=== PATIENT | male | born 1985 | race Caucasian/White ===

== ENCOUNTER 2019-06-10 14:21 | Inpatient (IN) | payer MEDICAID, SELFPAY ==
[~2019-06-10] VITALS: Ht 180.3 cm; Wt 76.0 kg
[2019-06-10] MEDS ORDERED: BUPRENORPHINE/NALOXONE 8-2MG SUBLINGUAL TABLET(SUBOXONE) SL SCH (16:00)
[2019-06-10 16:17] VITALS: BP 127/78
[2019-06-10] MEDS ORDERED: BUPR8SUB SL (16:40)
[2019-06-10 16:54] LABS: BASO % 0.3 % (0.0-1.0); EOS # 0.1 10^3/uL (0.0-0.50); EOS % 0.8 % (0.0-3.0); HEMATOCRIT 35.9 % (42.0-52.0); HEMOGLOBIN 12.4 g/dl (13.5-17.5); LYMPH # 0.7 10^3/uL (1.5-4.5); LYMPH % 9.6 % (24.0-44.0); MEAN CORPUSCULAR HEMOGLOBIN 30.5 pg (27.0-33.0); MEAN CORPUSCULAR HGB CONC 34.5 g/dl (32.0-36.5); MEAN CORPUSCULAR VOLUME 88.4 fl (80.0-96.0); MONO # 0.9 10^3/uL (0.0-0.8); MONO % 12.2 % (0.0-5.0); NEUTROPHILS # 5.5 10^3/uL (1.8-7.7); NEUTROPHILS % 76.1 % (36.0-66.0); RED BLOOD COUNT 4.06 10^6/uL (4.30-6.10); WHITE BLOOD COUNT 7.2 10^3/uL (4.0-10.0)
[2019-06-10 17:29] LABS: PLATELET COUNT, AUTOMATED 77 10^3/uL (150-450)
[2019-06-10] MEDS ORDERED: GLUCAGON FOR INJ 1 MG VIAL (J1610) SC PRN (17:30)
[2019-06-10] MEDS ORDERED: DEXTROSE 50% 50 ML SYRINGE IV PRN (17:30)
[2019-06-10] MEDS ORDERED: GLUCOSE 4 GM CHEW TABLET PO PRN (17:30)
--- NOTE | 2019-06-10 18:23 | HPE ---
DATE OF ADMISSION: 06/10/2019 PRIMARY CARE PHYSICIAN: None. Patient transfers from [facility], [place] due to multifocal pneumonia and methicillin-resistant Staphylococcus aureus (MRSA) bacteremia. HISTORY OF PRESENTING ILLNESS: This is a 34-year-old male with past medical history of IV drug use with heroin, cocaine, prescription medications, morphine, fentanyl, with last use being 5 years ago, bipolar disorder, depression, and active tobacco use, a little more than one pack a day, was well until about 3 weeks ago when he stabbed his left wrist with plywood at work after slipping. At that time, he went to [facility] emergency room where it was cleansed and super glued. He was sent home without antibiotics and without pain medication. According to him, the pain became much more severe, he was unable to work, his boss said that he did not look good, and he was told to just stay on the ground with moderate duty. He really was not able to do anything, but his boss said that if the other construction workers needed something then he can hand it to them. He did this for about 2 days and then he was off , Sunday, and the following weekend. Throughout the following week, he had on and off chills and rigors. He denied any documented fevers. He said he tried to come back to work on Sunday but he was sent home again by his boss on Sunday and Sunday. On Sunday/ he tried to tough it out, but he could not, because he needs the income. At home he has three children and a girlfriend. His boss gave him Sunday off and the children wanted to go to the [facility] on Sunday but he thought that he did not have any money. Once he got his paycheck, his boss had given him a 40-hour check and he was able to let them go. He felt badly that he stayed behind. When his girlfriend came back, she was exhausted and could not bring him to the hospital. He complained of generalized weakness, pain mostly on the left side, some on and off chills, he described it as like having a seizure "but I was wide awake with a fan on me" with some shortness of breath, cough which was nonproductive. He has had decreased appetite and has not had any documented weight loss. The last time he ate was a half a bowl of macaroni and cheese and some chicken from [email or web address]. Since then he has had no appetite. His girlfriend's mom, who works in billing over at [facility], [place], was able to give him a ride to the hospital. He was admitted to [facility] [place] on 06/08/2019 where he was found to have multifocal pneumonia on CT of the chest. His heart rate was 142, sinus tachycardia. He did not have any open lesions on his upper or lower extremities, chest, back, and abdomen. No source of cellulitis. Due to complaints of nausea and episodes of occasional vomiting, food emesis, CT of the abdomen was also done which showed nonobstructive minimal nephrolithiasis on the right kidney, mild splenomegaly. He was treated initially with ceftriaxone and azithromycin for community-acquired pneumonia. He then became hypotensive and required IV fluids with central line placement on 06/09/2019. His urine and drug screen was positive for marijuana which he admits to taking. Patient was transferred to [facility] due to blood cultures showing MRSA. Sensitivities are pending. His antibiotics were then changed to vancomycin and Zosyn. PAST MEDICAL HISTORY: IV drug use with heroin, cocaine, currently only using marijuana socially, depression, bipolar disorder. PAST SURGICAL HISTORY: None. HOME MEDICATIONS: - buprenorphine 8 mg three times a day, prescribed by a physician in [facility] which he teleconferences once a month ALLERGIES: No known drug allergies. SOCIAL HISTORY: No alcohol use. The patient has been smoking cigarettes, a little more than a pack a day, since the age of 13. He has decreased smoking for the past 2-3 weeks since he has been ill. He uses marijuana daily. He previously used heroin, cocaine, morphine, fentanyl, last used this 5 years ago. He is currently managed by a physician in [facility] that has video conference with him every month for the past 3-5 years. 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 He has a girlfriend. He has three children, eldest is a 12-year-old son, 11-year-old daughter, and a 3-year-old. He is the only income earner in the family. FAMILY HISTORY: Mother in her 50s, is a registered nurse, healthy. Father in his mid-50s with kidney issues. REVIEW OF SYSTEMS: Per history of present illness (HPI). 12-point system otherwise negative. PHYSICAL EXAMINATION: Temperature 97.4, pulse 101, respiratory rate 22, blood pressure 127/78, 98% on room air. GENERALLY: Patient is awake, alert, oriented times three. No facial asymmetry. Tongue is midline. Pupils are round and reactive. Extraocular muscles are intact. Patient's speech is fluent. Anicteric sclerae. No jaundice. No tracheal deviation. Following commands. Able to state his history. HEENT: Pupils are round and reactive. Extraocular muscles are intact. No jugular venous distention. No thyromegaly. No cervical lymphadenopathy. LUNGS: Clear to auscultation in the upper lobes. No wheezing or rales. HEART: S1, S2, sinus rhythm. No murmurs. Nondisplaced point of maximal impulse. ABDOMEN: Soft, nontender, nondistended. Positive bowel sounds times four quadrants. No rebound or guarding. EXTREMITIES: No cyanosis, clubbing, or pitting edema. SKIN: Patient has multiple healed lesions. Lesion on the wrist is well healed. There is no purulence, tenderness, or induration on the left wrist. LABORATORY DATA: White count 7.2, hemoglobin 12, hematocrit 35, platelet count of 77. Metabolic panel, liver function tests, CRP, blood cultures are pending. Hepatitis serology and HIV are pending. Chest x-ray pending. IMAGING STUDIES FROM [facility]: CTA of the chest showed scattered bilateral lateral multiple ground-glass opacities and ground-glass nodules likely due to multifocal pneumonia. Advise short-term followup to exclude persisting nodule on pathology. No definitive filling defects to suggest pulmonary emboli. CT abdomen shows nonobstructive minimal nephrolithiasis in the right kidney with mild splenomegaly. ASSESSMENT AND PLAN: Active issues are: 1. Bilateral multifocal pneumonia with gram-positive bacteremia. Patient's sensitivity results are still pending. Patient previously received ceftriaxone and azithromycin from 06/08/2019 to 06/09/2019, seen at [facility] [place], recently switched over to vancomycin and Zosyn for broader coverage in light of the methicillin-resistant Staphylococcus aureus (MRSA) bacteremia found in blood culture. Patient is continued on the same for now until blood cultures are finalized. Two sets of blood cultures could only be obtained through the central line due to poor venous access. 2. Methicillin-resistant Staphylococcus aureus (MRSA) bacteremia. Currently on vancomycin and Zosyn until final culture results are obtained. Repeat blood cultures are taken here at [facility]. Will obtain sensitivity results from [facility] [place]. Echocardiogram was negative for vegetation. His ejection fraction was 60%. The patient was agreeable to doing a transesophageal echocardiogram to rule out endocarditis. Dr. Kaufman has been consulted. Patient will be kept nothing by mouth after midnight. IV fluids to prevent hypoglycemia and hypoglycemic protocol from midnight until the exam is performed tomorrow before 6:30 p.m. 3. Nicotine abuse. Tobacco cessation counseling has been provided. He smokes a little over a pack a day. He is on nicotine replacement therapy. 4. History of polysubstance abuse with prescription medications, morphine, fentanyl, heroin, cocaine. He is currently managed by a physician in [facility] and does video conferencing once a month. May resume patient's buprenorphine, Suboxone, one tablet three times a day. 5. Thrombocytopenia. Admission platelets of [address] [facility] [place] had a platelet count of 77. Therefore, compression stockings will be placed. Heparin induced panel will be sent. Check a disseminated intravascular coagulation (DIC) panel. 6. Positive urine drug screen for marijuana. Patient admits to continued marijuana use. 7. History of bipolar disorder. Currently on no medications. 8. Splenomegaly, incidental finding. Does not complain of any left-sided pain. [facility]
[2019-06-10 18:45] LABS: INR 1.2; PROTHROMBIN TIME 14.9 SECONDS (11.8-14.0)
[2019-06-10 18:46] LABS: PARTIAL THROMBOPLASTIN TIME 36.7 SECONDS (25.0-38.4)
[2019-06-10] MEDS: NICOTINE 14 MG/24 HR TRANSDERMAL TD SCH (18:46)
[2019-06-10] MEDS: PIPERACILLIN/TAZOBACTAM SOD 4.5 GM in D5W MINI-BAG PLUS 50 ML IV SCH ×2 (18:46→23:58)
[2019-06-10] MEDS ORDERED: KETOROLAC 30 MG/ML VIAL (J1885) IV ONE (19:00)
[2019-06-10 19:02] LABS: D-DIMER QUANT 3931.02 ng/ml (<500)
[2019-06-10 19:03] LABS: ERYTHROCYTE SEDIMENTATION RATE 13 mm/hr (0-15)
[2019-06-10 19:26] LABS: ALT/SGPT 31 U/L (12-78); BILIRUBIN,DIRECT 0.6 MG/DL (0.0-0.2); BILIRUBIN,TOTAL 0.9 MG/DL (0.2-1.0); BLOOD UREA NITROGEN 12 MG/DL (7-18); CALCIUM LEVEL 7.4 MG/DL (8.5-10.1); CARBON DIOXIDE LEVEL 28 MEQ/L (21-32); CHLORIDE LEVEL 103 MEQ/L (98-107); CREATININE FOR GFR 0.58 MG/DL (0.70-1.30); GLOMERULAR FILTRATION RATE > 60.0 (>60); GLUCOSE, FASTING 96 MG/DL (70-100); POTASSIUM SERUM 3.4 MEQ/L (3.5-5.1); SODIUM LEVEL 136 MEQ/L (136-145); TOTAL PROTEIN 5.7 GM/DL (6.4-8.2)
[2019-06-10 20:00] VITALS: BP 133/71
[2019-06-10] MEDS: BUPRENORPHINE 8 MG SL SCH (20:28)
[2019-06-10] MEDS: VANCOMYCIN HCL 1,000 MG, VIAL MATE ADAPTER 1 EACH in D5W 250 ML IV SCH (20:29)
[2019-06-10] MEDS ORDERED: NON-FORMULARY 1 EA EA PO SCH (21:00)
[2019-06-10] MEDS ORDERED: HEPARIN SOD (PORCINE) 5000 UNITS/ML VIAL SC SCH (22:00)
[2019-06-10] MEDS: ULTRACET TAB PO PRN (22:56)
--- NOTE | 2019-06-10 23:08 | PHACANCOPD ---
PHARMACY VANCOMYCIN DOSING Pt Demographics Demographics Patient Age:34 , Weight:76.200 , Gender: male Adjusted Body Weight Events Past 24 Hours Events Past 24 Hours: NO: Dialysis, Diuretic Therapy, Change in CrCl, Fever, Elevation in WBC, Pending Diagnostics, Pending Procedures, Other Vancomycin Vancomycin indication: MRSA BACTEREMIA, MULTIFOCAL PNA & SEPSIS Vancomycin Target Ranges: 10-20 mcg/ml Vancomycin Load Y/N: Yes Load Dose Date Time Vancomycin Load Dose: 1GM Date: 06/10/19 Time: 11:45AM @ [facility] Vancomycin Dose Date: 06/10/19. Current Vancomycin Dose: [1GM IV Q8H (started @21:00] Intermittent Dosing?: No Labs Labs Laboratory Tests 06/10/19 16:35 Red Blood Count 4.06 L, Mean Corpuscular Volume 88.4, Mean Corpuscular Hemoglobin 30.5, Mean Corpuscular Hemoglobin Concent 34.5, Red Cell Distribution Width 12.8, Neutrophils (%) (Auto) 76.1 H, Lymphocytes (%) (Auto) 9.6 L, Monocytes (%) (Auto) 12.2 H, Eosinophils (%) (Auto) 0.8, Basophils (%) (Auto) 0.3, Neutrophils # (Auto) 5.5, Lymphocytes # (Auto) 0.7 L, Monocytes # (Auto) 0.9 H, Eosinophils # (Auto) 0.1, Basophils # (Auto) 0.0 06/10/19 18:00 Micro Microbiology 06/10/19 Blood Culture, Received Pending Creatinine Clearance Date:06/10/19. Creatinine Clearance: [>80 ml/min]. Pending Labs VANCO TR 06/11/19 20:00 Assessment and Plan Maintaining Current Dose?: Yes Reason for dose change: No Dose Change Pharmacist Note Pharmacist Note Date: 06/10/19. PharmD note: VANCOMYCIN INITIATED AT [facility] TODAY(unclear if 1250mg or 1GM GIVEN THERE; MAR UNCLEAR). REGARDLESS, WE WILLL START VANCO 1GM IV Q8H @21:00 THIS EVENING FOLLOWING HIS ZOSYN TX. WE WILL OBTAIN A VANCO TROUGH TOMORROW EVENING PRIOR TO HIS 21:00 DOSE [facility] Jun 10, 2019 23:08
[2019-06-10 23:59] VITALS: BP 135/70
[2019-06-11] VITALS (10 sets, daily range): BP systolic 114–135; BP diastolic 61–73; PULSE 96
[2019-06-11] MEDS ORDERED: KETOROLAC TROMETHAMINE 10 MG TAB PO PRN
[2019-06-11] MEDS: D5W/0.45% SODIUM CHLORIDE 1,000 ML IV SCH ×3 (00:55→17:45)
[2019-06-11] MEDS: ULTRACET TAB PO PRN (04:25)
[2019-06-11] MEDS: VANCOMYCIN HCL 1,000 MG, VIAL MATE ADAPTER 1 EACH in D5W 250 ML IV SCH (05:25)
[2019-06-11 06:35] LABS: MEAN CORPUSCULAR HEMOGLOBIN 30.3 pg (27.0-33.0); MEAN CORPUSCULAR HGB CONC 34.3 g/dl (32.0-36.5); MEAN CORPUSCULAR VOLUME 88.4 fl (80.0-96.0); RED BLOOD COUNT 3.96 10^6/uL (4.30-6.10); WHITE BLOOD COUNT 6.9 10^3/uL (4.0-10.0)
[2019-06-11 06:41] LABS: PLATELET COUNT, AUTOMATED 88 10^3/uL (150-450)
[2019-06-11] MEDS: PIPERACILLIN/TAZOBACTAM SOD 4.5 GM in D5W MINI-BAG PLUS 50 ML IV SCH ×4 (06:49→23:29)
[2019-06-11 06:51] LABS: BLOOD UREA NITROGEN 11 MG/DL (7-18); CALCIUM LEVEL 7.8 MG/DL (8.5-10.1); CARBON DIOXIDE LEVEL 29 MEQ/L (21-32); CHLORIDE LEVEL 103 MEQ/L (98-107); CREATININE FOR GFR 0.68 MG/DL (0.70-1.30); GLOMERULAR FILTRATION RATE > 60.0 (>60); GLUCOSE, FASTING 146 MG/DL (70-100); POTASSIUM SERUM 3.1 MEQ/L (3.5-5.1); SODIUM LEVEL 136 MEQ/L (136-145)
--- NOTE | 2019-06-11 07:24 | REP ---
PORTABLE CHEST: AP portable view of the chest is performed. I have no prior study for comparison. There is consolidative infiltrate in the left lung base. There are scattered subtle ill-defined opacities diffusely bilaterally, which may represent small areas of infiltrate. Septic emboli cannot be excluded given the stated history of Staphylococcus aureus bacteremia. The heart does not appear to be significantly enlarged. There is a right central venous catheter with the tip in the superior vena cava. There is no pneumothorax. Electronically Signed by Keith Jaffe MD 06/12/2019 12:09 A
[2019-06-11] MEDS ORDERED: traMADol 50 MG TAB PO PRN (07:30)
[2019-06-11] MEDS ORDERED: traMADol 50 MG TAB PO ONE (08:00)
[2019-06-11 08:30] LABS: MAGNESIUM LEVEL 1.8 MG/DL (1.8-2.4)
[2019-06-11] MEDS: POTASSIUM CHLORIDE 10 MEQ SR TABLET PO SCH ×2 (09:02→20:10)
[2019-06-11] MEDS: NICOTINE 14 MG/24 HR TRANSDERMAL TD SCH (09:04)
[2019-06-11] MEDS: BUPRENORPHINE 8 MG SL SCH ×4 (09:04→20:13)
[2019-06-11 10:38] LABS: HEPATITIS B SURFACE ANTIGEN NEGATIVE (NEGATIVE)
[2019-06-11 11:05] LABS: HEPATITIS B CORE ANTIBODY IGM NEGATIVE (NEGATIVE)
[2019-06-11 11:07] LABS: HEPATITIS A ANTIBODY IGM NEGATIVE (NEGATIVE); HIV 1&2 SCREEN CENTAUR NEGATIVE (NEGATIVE)
[2019-06-11 11:28] LABS: HEPATITIS C VIRUS ABY INDEX > 11.0 INDEX (<0.8)
[2019-06-11] MEDS: KETOROLAC 30 MG/ML VIAL (J1885) IV SCH ×3 (12:04→23:30)
[2019-06-11] MEDS ORDERED: PROHANCE 279.3MG/ML 15ML VIAL (A9576) As Ordered ONE (13:17)
[2019-06-11] MEDS: traMADol 50 MG TAB PO SCH ×3 (15:03→20:11)
[2019-06-11] MEDS ORDERED: PROPOFOL 200 MG/20 ML VIAL As Ordered ONE (15:41)
[2019-06-11] MEDS ORDERED: LIDOCAINE 2% INJ 100 MG/5 ML SDV (FOR ANES.) As Ordered ONE (15:41)
[2019-06-11] MEDS ORDERED: CETACAINE SPRAY 5GM As Ordered ONE (15:41)
[2019-06-11] MEDS ORDERED: LIDOCAINE VISCOUS 2% SOLN 15ML UDC As Ordered ONE (15:42)
[2019-06-11] MEDS ORDERED: VANCOMYCIN HCL 1,000 MG, VIAL MATE ADAPTER 1 EACH in D5W 250 ML IV SCH (16:00)
[2019-06-11] MEDS ORDERED: ONDANSETRON 4MG/2ML VIAL (J2405) IV PRN (16:45)
[2019-06-11] MEDS ORDERED: LR 1,000 ML IV SCH (16:45)
--- NOTE | 2019-06-11 17:42 | REP ---
MR THORACIC SPINE WITHOUT AND WITH CONTRAST: HISTORY: Radicular pain. A small disc protrusion is present at the T7-8 level. There is minimal effacement of the thecal sac without spinal cord compression. The T7 neural foramina are patent. There is no other disc bulge or herniation. The remaining neural foramina are patent. The spinal cord is normal in signal intensity. There is no abnormal enhancement. Normal signal intensity is present in the thoracic vertebral bodies. Small bilateral pleural effusions are present. IMPRESSION: 1. Small disc protrusion at the T7-8 level without spinal cord compression. 2. Small bilateral pleural effusions. Electronically Signed by Jeffrey Castañeda MD 06/11/2019 06:09 P
--- NOTE | 2019-06-11 19:21 | IPN ---
DATE: 06/11/2019 Patient was seen and examined. He complained of pain everywhere, including his upper, middle, and lower back. Complained of pain along the right lower extremity, upper arms bilaterally, and left lower extremity. Despite tramadol and Toradol, patient has had no relief. He describes the pain as achy, shooting at times, lasting for a few minutes at a time but constantly on and off throughout the night. Patient had had similar episode at home, prompting to come to the emergency room (ER). Blood cultures are still pending. Previous blood culture at [facility] showed methicillin-resistant Staphylococcus aureus (MRSA) infection, currently vancomycin, and sensitivity results are not available. Patient was kept nothing by mouth after midnight for transesophageal echo to rule out endocarditis. He had a maximal temperature of 99.7, current temperature 96.9. Patient also complains of occasional hemoptysis with bright red blood but no hematemesis, nausea, vomiting, or epigastric discomfort. He still complains of pleuritic chest pain. VITAL SIGNS: Temperature 96.9, pulse 97, sinus rhythm, blood pressure 116/61, on 2 liters nasal cannula at 97%. GENERAL: Patient is in no respiratory distress. No use of acute respiratory muscles. Able to speak in full sentences without conversational dyspnea. He is not diaphoretic. His face is symmetric. No jugular venous distention, cervical lymphadenopathy, or thyromegaly. There is a right internal jugular venous catheter. LUNGS: Diminished but clear to auscultation. No wheezing or rales. HEART: S1, S2, slightly irregular. ABDOMEN: Soft, nontender, nondistended. Positive bowel sounds times four quadrants. EXTREMITIES: Well-healed scars. No cyanosis, clubbing, or any pitting edema. LABORATORY DATA: Has been reviewed. Notable for a platelet count of 88. Heparin-induced antibody is still pending. Urinalysis (UA) is unremarkable. Potassium is 3.1. Microbiology has been reviewed. IMAGING STUDIES: Thoracic/cervical spine x-rays have been performed, but no reports are available. ASSESSMENT AND PLAN: A 34-year-old male with a history of intravenous (IV) drug use with heroin, cocaine. Had been clean for the past 5 years. Follows with a physician in [facility] and is on chronic buprenorphine with an allergy to Suboxone. Presented with aches and pains, ongoing subjective fevers for the past 3 weeks, decrease in appetite. Was found to have methicillin-resistant Staphylococcus aureus (MRSA) bacteremia with possible septic emboli bilaterally. Initially seen at [facility], where he was admitted for bilateral multifocal pneumonia with gram-positive bacteremia and was initially treated with ceftriaxone/azithromycin from June 08 to June 09. Once blood cultures returned with MRSA bacteremia, patient was subsequently transferred to [facility]. Due to poor venous access, central line was placed in the right internal jugular vein. He is currently being treated for the following issues. 1. MRSA bacteremia, currently on vancomycin and Zosyn until final culture sensitivities are available. Repeat blood cultures taken at [facility] were strictly from the central line, as the patient's veins were very poor and unable to obtain samples from there. Echocardiogram at [facility] showed no vegetations with ejection fraction of 60%. Patient gave consent to proceed with transesophageal echocardiogram with Dr. Mandeep longoria. Patient was kept nothing by mouth after midnight. Intravenous (IV) fluids were given to prevent hypoglycemia and hypoglycemic protocol until he returns from his transesophageal echo. Due to history of IV drug use, he is at risk for right-sided endocarditis but states that he has not used any drugs for about 5 years. 2. Possible bilateral septic emboli and Staphylococcus aureus pneumonia. Due to septic emboli, he continues to have issues with slight shortness of breath. Sputum culture is still pending. He is currently on vancomycin. Zosyn has been added for gram-negative coverage. At this time, no heparinization or Lovenox will be given. If this is truly a septic emboli, it should respond to IV antibiotics. 3. Nicotine abuse. Patient has been counseled against continued cigarette use. He smokes a little over a pack a day. Currently on nicotine replacement treatment. 4. History of polysubstance abuse with prescription medications, morphine, fentanyl, Percocet, oxycodone. Also had a history of heroin and cocaine use. Currently managed by a [facility] physician who does video conferencing once a month. Patient says that he has an allergy to Suboxone and strictly uses buprenorphine three times a day, which has been resumed. 5. Thrombocytopenia. Admission platelets of 127. Discharged from [place] with a platelet count of 77. He currently has compression stockings for deep vein thrombosis (DVT) prophylaxis in light of the low platelet count. Heparin-induced thrombocytopenia (HIT) panel has been sent. 6. Positive urine drug screen for marijuana. He admits to continued use of marijuana and says that his physician in [facility] is aware of this. 7. Chronic back pain. Now that he has MRSA bacteremia and complains of radicular signs, he will be evaluated with MRI of the thoracic spine, as most of his pain is in the thoracic area around T11/T12. 8. History of bipolar disorder, on no medications. 9. Splenomegaly, incidental finding. Does not complain of any left-sided pain but at risk of any traumatic injury and splenic rupture. Will check a cytomegalovirus (CMV) and Miki-Mcdonald virus (EBV).
[2019-06-11 19:30] LABS: MONO REFLEX EBV VCA IgM NEGATIVE (NEGATIVE)
--- NOTE | 2019-06-11 23:48 | PHACANCOPD ---
PHARMACY VANCOMYCIN DOSING Pt Demographics Demographics Patient Age:34 , Weight:78.200 , Gender: male Adjusted Body Weight Events Past 24 Hours Events Past 24 Hours: NO: Dialysis, Diuretic Therapy, Change in CrCl, Fever, Elevation in WBC, Pending Diagnostics, Pending Procedures, Other Vancomycin Vancomycin indication: MRSA BACTEREMIA, MULTIFOCAL PNA & SEPSIS Vancomycin Target Ranges: 10-20 mcg/ml Vancomycin Load Y/N: Yes Load Dose Date Time Vancomycin Load Dose: 1GM Date: 06/10/19 Time: 11:45AM @ [facility] Vancomycin Dose Date: 06/11/19. Current Vancomycin Dose: [1GM IV Q8H] Intermittent Dosing?: No Labs Labs Laboratory Tests Test 06/11/19 23:05 Vancomycin Level Trough 8.0 UG/ML (10.0-20.0) Laboratory Tests 06/11/19 06:18 Red Blood Count 3.96, Mean Corpuscular Volume 88.4, Mean Corpuscular Hemoglobin 30.3, Mean Corpuscular Hemoglobin Concent 34.3, Red Cell Distribution Width 12.9, Calcium Level 7.8 Micro Microbiology 06/11/19 Blood Culture, Received Pending 06/11/19 Blood Culture, Received Pending 06/10/19 Blood Culture - Preliminary, Resulted No growth after 24 hours . All specim... 06/11/19 Gram Stain - Final, Resulted 06/11/19 Sputum Culture, Resulted Pending 06/11/19 Urine Culture, Received Pending Creatinine Clearance Date:06/11/19. Creatinine Clearance: [>80 ml/min]. Assessment and Plan Maintaining Current Dose?: No Reason for dose change: Trough too low Pharmacist Note Pharmacist Note Date: 06/10/19. PharmD note: VANCOMYCIN 1GM IV Q8H RESULTED IN A VANCO TROUGH = 8mcg/ml; HOWEVER, DUE TO TIME SPENT OFF FLOOR HIS 15:00 VANCO DOSING WAS IN QUESTION. IT IS UNCLEAR IF HE RECEIVED THE FULL DOSE. WE WILL INCREASE HIS DOSE TO VANCO 1GM IV Q6H STARTING AT 01:00 06/12/19 GIVEN HIS 22:00 06/11/19 DOSE WASN'T ADMINISTERED. WE WILL OBTAIN A REASONABLE VANCO TROUGH TOMORROW EVENING [facility] Jun 11, 2019 23:48
[2019-06-12] MEDS: VANCOMYCIN HCL 1,000 MG, VIAL MATE ADAPTER 1 EACH in D5W 250 ML IV SCH ×4 (01:00→18:19)
--- NOTE | 2019-06-12 02:52 | REP ---
Clinical: Neck pain . Technique: AP, lateral, flexion/extension, bilateral oblique, and open-mouth views. Findings: Alignment and lordosis is maintained. There is no evidence for acute fracture / compression injury or subluxation. No significant degenerative changes are appreciated. Oblique views demonstrate patent neural foramen. Open mouth view demonstrates normal C1-C2 articulation and odontoid process. Impression: Normal cervical spine series. Electronically Signed by Mj Sherman MD 06/12/2019 02:43 A
--- NOTE | 2019-06-12 02:55 | REP ---
Clinical: thoracic pain. Technique: AP, lateral views of the thoracic spine Findings: Alignment and kyphosis is maintained. Vertebral bodies intact. No acute fracture / compression injury or subluxation. No degenerative changes. Paravertebral soft tissues are normal. Impression: Normal age-appropriate thoracic spine series. Electronically Signed by Mj Sherman MD 06/12/2019 02:47 A
[2019-06-12 04:00] VITALS: BP 111/55
[2019-06-12] MEDS: D5W/0.45% SODIUM CHLORIDE 1,000 ML IV SCH ×2 (05:03→17:29)
[2019-06-12] MEDS: KETOROLAC 30 MG/ML VIAL (J1885) IV SCH ×3 (05:38→18:19)
[2019-06-12] MEDS: PIPERACILLIN/TAZOBACTAM SOD 4.5 GM in D5W MINI-BAG PLUS 50 ML IV SCH ×2 (05:38→12:38)
[2019-06-12 06:18] LABS: BASO % 0.3 % (0.0-1.0); EOS # 0.2 10^3/uL (0.0-0.50); HEMATOCRIT 31.8 % (42.0-52.0); MEAN CORPUSCULAR HEMOGLOBIN 30.7 pg (27.0-33.0); MEAN CORPUSCULAR HGB CONC 34.6 g/dl (32.0-36.5); MEAN CORPUSCULAR VOLUME 88.8 fl (80.0-96.0); MONO # 0.6 10^3/uL (0.0-0.8); MONO % 9.7 % (0.0-5.0); NEUTROPHILS # 4.3 10^3/uL (1.8-7.7); NEUTROPHILS % 70.2 % (36.0-66.0); PLATELET COUNT, AUTOMATED 126 10^3/uL (150-450); RED BLOOD COUNT 3.58 10^6/uL (4.30-6.10); WHITE BLOOD COUNT 6.1 10^3/uL (4.0-10.0)
[2019-06-12 06:46] LABS: BLOOD UREA NITROGEN 12 MG/DL (7-18); CALCIUM LEVEL 7.8 MG/DL (8.5-10.1); CARBON DIOXIDE LEVEL 31 MEQ/L (21-32); CHLORIDE LEVEL 104 MEQ/L (98-107); CREATININE FOR GFR 0.58 MG/DL (0.70-1.30); GLOMERULAR FILTRATION RATE > 60.0 (>60); GLUCOSE, FASTING 101 MG/DL (70-100); POTASSIUM SERUM 4.1 MEQ/L (3.5-5.1); SODIUM LEVEL 137 MEQ/L (136-145)
--- NOTE | 2019-06-12 07:23 | T-ECHO ---
DATE OF PROCEDURE: 06/11/2019 REFERRING PHYSICIAN: Dr. Orin Ventura INDICATION: Staphylococcus aureus bacteremia. PREPROCEDURE DIAGNOSIS: Staphylococcus aureus bacteremia. POSTPROCEDURE DIAGNOSIS: Staphylococcus aureus bacteremia, infective endocarditis of the tricuspid valve. PRINCIPAL FINDINGS: 0.6 x 0.9 cm vegetation attached to the tricuspid valve and associated with moderate tricuspid regurgitation. PROCEDURE PERFORMED: Transesophageal echocardiogram. PROCEDURE PERFORMED BY: Nicolas Kaufman MD RECEIVABLE EXECUTIVE: None. IV SEDATION: Propofol IV per METAL CANS SUPERVISOR. COMPLICATIONS: None. PROCEDURE DESCRIPTION: Rhythm was sinus. Patient received topical Cetacaine [place] to the back of the pharynx. Monitored anesthetic care was provided by the nurse polymer specialist. Esophageal intubation was accomplished without difficulty by Dr. Kaufman using a Rebecca 3-dimensional transesophageal echocardiogram probe. The left and right ventricles appeared normal in size and systolic function. The left ventricle ejection fraction was 65% by visual estimate. The atria appeared normal in size. No mass or thrombi within the left atrium or the left atrial appendage. Pulmonary vein flow in the left upper pulmonic vein was normal by pulse wave Doppler. The atrial septum was intact anatomically and by color flow Doppler. The aortic valve was 3-cuspid and was structurally and functionally normal. Mitral leaflets were structurally and functionally normal. No mitral regurgitation. Pulmonic valve was normal with very mild pulmonic regurgitation. The underlying tricuspid leaflets appeared structurally normal, however, there was a 0.6 x 0.9 cm vegetation on the atrial side of the tricuspid valve, most likely attached to the lateral tricuspid leaflet. This was associated with moderate tricuspid regurgitation. No pericardial effusion. Distal aortic arch and descending thoracic aorta appeared normal. CONCLUSIONS: 1. Tricuspid valve infective endocarditis with presence of a 0.6 x 0.9 cm vegetation attached to the tricuspid valve and associated with moderate tricuspid regurgitation. 2. Otherwise normal transesophageal echocardiogram findings.
[2019-06-12 08:00] VITALS: BP_SYST 124; BP_SYST 126; BP_DIAS 63; BP_DIAS 82; PULSE 95
[2019-06-12] MEDS: POTASSIUM CHLORIDE 10 MEQ SR TABLET PO SCH ×2 (08:19→22:16)
[2019-06-12] MEDS: NICOTINE 14 MG/24 HR TRANSDERMAL TD SCH (08:20)
[2019-06-12] MEDS: traMADol 50 MG TAB PO SCH ×3 (08:20→22:18)
[2019-06-12] MEDS: BUPRENORPHINE 8 MG SL SCH ×3 (08:20→22:16)
--- NOTE | 2019-06-12 08:30 | ECGEPIP ---
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
[2019-06-12 13:08] VITALS: BP 115/76
[2019-06-12 13:59] VITALS: BP 115/76
--- NOTE | 2019-06-12 19:52 | IPN ---
DATE: 06/12/2019 The patient has remained afebrile during the entire admission. Blood cultures at [facility] have been negative. Blood culture from [facility] was positive for methicillin-resistant Staphylococcus aureus (MRSA) bacteremia. Transesophageal echocardiogram done by Dr. Nicolas Kaufman shows tricuspid regurgitation secondary to 0.6 x 0.9 cm vegetation attached to tricuspid valve with moderate tricuspid regurgitation. The patient is currently on intravenous vancomycin. Zosyn has been discontinued as the patient appears to have a septic emboli causing the infiltrates on chest x-ray and not a pneumonia. The patient currently still complains of pain everywhere, especially the thoracic spine, despite a history of chronic neck, mid back and lower back pain, MRI of the thoracic spine shows no discitis. He does have a small disc protrusion at T7-T8 with small bilateral pleural effusions. Cervical spine x-ray was negative, and the patient vehemently denies recent intravenous (IV) drug use; does not use IV drugs for the past 5 years. Temperature 98.3, pulse 100, respiratory rate 18, blood pressure 115/76, 99% on two liters nasal cannula. Generally, the patient is awake, alert, oriented times three, answering questions appropriately. He is somewhat lethargic, but is still appropriate. Neck has a right internal jugular central venous catheter with a triple lumen. No thyromegaly. Lungs are clear to auscultation. No wheezing, rales or rhonchi. Heart: S1, S2, sinus tachycardia. Abdomen is soft, nontender, nondistended. Extremities: Multiple healed scabs in bilateral upper and lower extremities. CBC, metabolic panel, vancomycin trough, hepatitis B surface and core antigens are negative. HIV is negative. Three sets of blood cultures are negative. Sputum culture shows a few gram-positive rods, moderate gram-positive cocci in pairs and clusters and a few yeast-like organisms. ASSESSMENT AND PLAN: This is a 34-year-old male with a history of IV drug use with heroin and cocaine, had been clean for the past 5 years, follows with a physician in [facility], is on chronic buprenorphine with allergy to Suboxone, presented with generalized malaise, subjective fevers for 3 weeks, and decrease in appetite. He presented to [facility] where he was admitted from 06/08/2019 to 06/09/2019 and was found to have MRSA bacteremia and bilateral infiltrates on x-ray, thought initially to be multifocal pneumonia. He was then transferred to [facility] for further management. Central line was placed at [facility] due to severe hypotension requiring IV fluid boluses. 1. MRSA endocarditis. The patient had been on vancomycin/Zosyn initially due to concerns of pneumonia, currently only on vancomycin. Sensitivity results are still pending from [facility]. The patient underwent transesophageal echocardiogram by Dr. Kaufman on 06/11/2019 showing moderate tricuspid regurgitation secondary to vegetations in the tricuspid valve. He is to be evaluated by Dr. Paulina Alvarado, infectious disease specialist, to determine appropriate management as an outpatient. 2. Bilateral septic emboli due to MRSA bacteremia. Currently on vancomycin. He does not need heparinization or Lovenox and is expected to respond well to IV antibiotics. 3. Nicotine abuse. Has been counseled against cigarette smoking and nicotine replacement therapy. 4. History of polysubstance abuse with prescription medications, morphine, Fentanyl, Percocet, oxycodone. Also had a history of heroin and cocaine use, still using marijuana recreationally and for his chronic back pain. The patient is managed by a [facility] physician who does video conferencing with him and prescribes him buprenorphine due to his allergy of Suboxone in the past. 5. Thrombocytopenia. Evaluated with heparin-induced platelet panel, which is still pending. It has now improved to 126; may be due to infection. No signs of active bleeding. 6. Electrolyte abnormalities with low potassium has been resolved with potassium supplementation. 7. Positive urine drug screen for marijuana. Admits to continued use recreationally as well as for his back pain. His physician who prescribes his buprenorphine is aware of his use. 8. History of bipolar disorder. Currently on no medications. 9. Splenomegaly. EBV has been obtained. Does not complain of left-sided upper quadrant pain, at risk of traumatic injury and splenic rupture.
[2019-06-12 21:58] VITALS: BP 127/85
--- NOTE | 2019-06-12 23:45 | PHACANCOPD ---
PHARMACY VANCOMYCIN DOSING Pt Demographics Demographics Patient Age:34 , Weight:76.000 , Gender: male Adjusted Body Weight Events Past 24 Hours Events Past 24 Hours: NO: Dialysis, Diuretic Therapy, Change in CrCl, Fever, Elevation in WBC, Pending Diagnostics, Pending Procedures, Other Vancomycin Vancomycin indication: MRSA BACTEREMIA, MULTIFOCAL PNA & SEPSIS Vancomycin Target Ranges: 10-20 mcg/ml Vancomycin Load Y/N: Yes Load Dose Date Time Vancomycin Load Dose: 1GM Date: 06/10/19 Time: 11:45AM @ [facility] Vancomycin Dose Date: 06/12/19. Current Vancomycin Dose: [1GM IV Q6H] Intermittent Dosing?: No Labs Labs Laboratory Tests Test 06/11/19 23:05 06/12/19 18:07 Vancomycin Level Trough 8.0 UG/ML (10.0-20.0) 18.4 UG/ML (10.0-20.0) Laboratory Tests 06/12/19 05:45 Red Blood Count 3.58, Mean Corpuscular Volume 88.8, Mean Corpuscular Hemoglobin 30.7, Mean Corpuscular Hemoglobin Concent 34.6, Red Cell Distribution Width 13.1, Neutrophils (%) (Auto) 70.2, Lymphocytes (%) (Auto) 16.0, Monocytes (%) (Auto) 9.7, Eosinophils (%) (Auto) 3.0, Basophils (%) (Auto) 0.3, Neutrophils # (Auto) 4.3, Lymphocytes # (Auto) 1.0, Monocytes # (Auto) 0.6, Eosinophils # (A uto) 0.2, Basophils # (Auto) 0.0, Calcium Level 7.8 Micro Microbiology 06/11/19 Blood Culture - Preliminary, Resulted No growth after 24 hours . All specim... 06/11/19 Blood Culture - Preliminary, Resulted No growth after 24 hours . All specim... 06/10/19 Blood Culture - Preliminary, Resulted No Growth after 48 hours. All Specime... 06/11/19 Gram Stain - Final, Resulted 06/11/19 Sputum Culture, Resulted Pending 06/11/19 Urine Culture, Received Pending Creatinine Clearance Date:06/12/19. Creatinine Clearance: [>80 ml/min]. Assessment and Plan Maintaining Current Dose?: Yes Reason for dose change: No Dose Change Pharmacist Note Pharmacist Note Date: 06/12/19. PharmD note: VANCOMYCIN 1GM IV Q6H RESULTED IN A VANCO TROUGH = 18.4mcg/ml; ALL DOSES OVER THE PAST 24HRS GIVEN ON TIME. WE WILL CONTINUE WITH THE CURRENT DOSE JENNY [facility] Jun 12, 2019 23:45
[2019-06-13] MEDS: KETOROLAC 30 MG/ML VIAL (J1885) IV SCH ×5 (00:38→23:56)
[2019-06-13] MEDS: VANCOMYCIN HCL 1,000 MG, VIAL MATE ADAPTER 1 EACH in D5W 250 ML IV SCH ×3 (00:38→18:27)
[2019-06-13] MEDS: D5W/0.45% SODIUM CHLORIDE 1,000 ML IV SCH ×3 (05:29→23:51)
[2019-06-13 06:52] VITALS: BP 118/63
[2019-06-13 08:14] LABS: BASO % 0.5 % (0.0-1.0); EOS # 0.2 10^3/uL (0.0-0.50); EOS % 2.8 % (0.0-3.0); HEMATOCRIT 29.2 % (42.0-52.0); HEMOGLOBIN 9.9 g/dl (13.5-17.5); LYMPH # 0.9 10^3/uL (1.5-4.5); MEAN CORPUSCULAR HEMOGLOBIN 29.6 pg (27.0-33.0); MEAN CORPUSCULAR HGB CONC 33.9 g/dl (32.0-36.5); MEAN CORPUSCULAR VOLUME 87.4 fl (80.0-96.0); MONO # 0.5 10^3/uL (0.0-0.8); MONO % 8.5 % (0.0-5.0); NEUTROPHILS # 4.1 10^3/uL (1.8-7.7); NEUTROPHILS % 71.3 % (36.0-66.0); PLATELET COUNT, AUTOMATED 158 10^3/uL (150-450); RED BLOOD COUNT 3.34 10^6/uL (4.30-6.10); WHITE BLOOD COUNT 5.8 10^3/uL (4.0-10.0)
[2019-06-13 08:35] LABS: BLOOD UREA NITROGEN 13 MG/DL (7-18); CALCIUM LEVEL 7.6 MG/DL (8.5-10.1); CARBON DIOXIDE LEVEL 30 MEQ/L (21-32); CHLORIDE LEVEL 104 MEQ/L (98-107); CREATININE FOR GFR 0.82 MG/DL (0.70-1.30); GLOMERULAR FILTRATION RATE > 60.0 (>60); GLUCOSE, FASTING 101 MG/DL (70-100); POTASSIUM SERUM 4.5 MEQ/L (3.5-5.1); SODIUM LEVEL 138 MEQ/L (136-145)
[2019-06-13] MEDS: BUPRENORPHINE 8 MG SL SCH ×3 (09:26→20:20)
[2019-06-13] MEDS: NICOTINE 14 MG/24 HR TRANSDERMAL TD SCH (09:27)
[2019-06-13] MEDS: POTASSIUM CHLORIDE 10 MEQ SR TABLET PO SCH ×2 (09:28→20:19)
[2019-06-13] MEDS: traMADol 50 MG TAB PO SCH ×3 (09:28→20:19)
--- NOTE | 2019-06-13 13:19 | PHACANCOPD ---
PHARMACY VANCOMYCIN DOSING Pt Demographics Demographics Patient Age:34 , Weight:76.000 , Gender: male Adjusted Body Weight Events Past 24 Hours Events Past 24 Hours: YES: Change in CrCl; NO: Dialysis, Diuretic Therapy, Fever, Elevation in WBC, Pending Diagnostics, Pending Procedures, Other Vancomycin Vancomycin indication: MRSA BACTEREMIA, MULTIFOCAL PNA & SEPSIS Vancomycin Target Ranges: 10-20 mcg/ml Vancomycin Load Y/N: Yes Load Dose Date Time Vancomycin Load Dose: 1GM Date: 06/10/19 Time: 11:45AM @ [facility] Vancomycin Dose Date: 06/13/19. Current Vancomycin Dose: [1g IV Q8H @18] Date: 06/12/19. Current Vancomycin Dose: [1GM IV Q6H] Intermittent Dosing?: No Labs Micro Microbiology 06/11/19 Blood Culture - Preliminary, Resulted No Growth after 48 hours. All Specime... 06/11/19 Blood Culture - Preliminary, Resulted No Growth after 48 hours. All Specime... 06/10/19 Blood Culture - Preliminary, Resulted No Growth after 48 hours. All Specime... 06/11/19 Gram Stain - Final, Resulted 06/11/19 Sputum Culture, Resulted Pending 06/11/19 Urine Culture - Final, Complete Creatinine Clearance Date:06/13/19. Creatinine Clearance: [>100 ml/min]. Date:06/12/19. Creatinine Clearance: [>80 ml/min]. Pending Labs Vanco trough 06/14 @17:00 Assessment and Plan Maintaining Current Dose?: No Reason for dose change: Trough too high Pharmacist Note Pharmacist Note Date: 06/13/19. Pharmacist note: repeat vanco trough this afternoon was high at 2 6.6 mcg/ml. SCr is significantly changed from yesterday. I have reduced him back to 1g q8h to start ~6 hours post trough. I will repeat a trough tomorrow. We will continue to monitor and make adjustments as necessary. Edmundo López Pharm.D. Jun 13, 2019 13:19
[2019-06-13 15:47] LABS: BODY FLUID CULTURE Not Indicated (.); LEGIONELLA ANTIGEN URINE Negative (Negative); ORGANISM ID Not indicated. (.); SPECIMEN SOURCE Urine (.); URINE STREP PNEUMONIAE ANTIGEN Negative (Negative)
--- NOTE | 2019-06-13 19:09 | CR ---
DATE OF CONSULTATION: 06/12/2019 INFECTIOUS DISEASE CONSULTATION Asked to consult by Dr. Ventura for evaluation of methicillin-resistant Staphylococcus aureus (MRSA), endocarditis with septic emboli to the lungs. HISTORY OF PRESENT ILLNESS: Nicolas is a 34-year-old gentleman with a previous history of intravenous (IV) heroin and cocaine abuse but has been clean for the past 5 years. The patient about 3 weeks ago had an injury at work and from his description, described having nicked an artery and went to [facility] where he had some care, including gluing of the injured wrist. A week later, he noticed that there was dehiscence of the wound with purulent discharge. He took 3 days of oral antibiotics, which was Augmentin 500 and 800 mg that he had at home and the wound improved. But he had developed fever and chills with fatigue, increasing shortness of breath, chest pain, which he describes as pleuritic. He got progressively worse and eventually came to [place] emergency room, brought in by his girlfriend's mother. He had generalized weakness, a cough now productive of bloody phlegm, decreased appetite, weight loss. He has not eaten in a couple of weeks except for some macaroni and cheese. At [facility], he was noted to have bacteremia and sepsis, had blood cultures which were positive for methicillin-resistant Staphylococcus aureus (MRSA). The patient was on IV vancomycin and Zosyn. He was transferred to our care for a transesophageal echocardiogram. That was done yesterday by Dr. Kaufman, was positive for vegetation on his tricuspid valve. That measured 0.6 x 0.9 cm with moderate tricuspid regurgitation. His addiction care is taken care of by a doctor through telemedicine. Once a month, he meets up with his doctor and a prescription is sent monthly. He has been doing that for 5 years. He sees his doctor in [facility] once a year only. His urine drug screen was positive for marijuana, which he admits taking. PAST MEDICAL HISTORY: IV drug use, including heroin and cocaine; in remission for over 5 years, Marijuana abuse, depression and bipolar disorder. PAST SURGICAL HISTORY: None. MEDICATIONS: - buprenorphine 8 mg three times a day ALLERGIES: No known drug allergies. SOCIAL HISTORY: He does not drink alcohol. He smokes since the age of 13, over a pack a day. He uses marijuana daily. He used in the past, heroin, cocaine, morphine, Fentanyl but not in 5 years. 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 His girlfriend was a drug user in the past, but also has been in remission and uses Suboxone. They have three children together, 12, 11 and 3-year-old. His mother is a nurse's aide and is present at the appointment. FAMILY HISTORY: Mother in her 50s, nurse's aide. Father mid 50s with kidney issue; he has a history of alcoholism, drug addiction and renal cancer. REVIEW OF SYSTEMS: He has some fever, chills. He has had some nausea and vomiting. No diarrhea or abdominal pain. He has pleuritic chest pain, joint pains. He has no rash. His left arm still hurts him from the injury at work. PHYSICAL EXAMINATION: Temperature is 98.3. He has been afebrile in the past 48 hours, pulse 100, respirations 18, blood pressure 115/76, oxygen saturation (O2 sat) 99% on 2 liters nasal cannula. Sick looking gentleman in no acute distress. Heart: Normal S1, S2, tachycardiac, systolic ejection murmur best heard at the right lower sternal border. No rubs. Lungs: Diminished breath sounds at bases with few crackles intermittently. No wheezes or rhonchi. Abdomen: Soft, nontender. No hepatosplenomegaly. Back: No costovertebral angle tenderness. He has mild mid-thoracic tenderness. Extremities: Left arm scar above the radial artery measures 2 cm, well healed but sandblast or shotblast equipment tender to touch. There is no evidence of swelling around the biceps. Shoulder slightly tender range of motion but normal range of motion bilaterally, slightly painful range of motion but normal. No effusions. No swelling of the shoulders. No clubbing/cyanosis. He has trace edema. He has multiple healed scars of ulcers and abscesses on his lower extremities, circular, other smaller ones on his upper thighs. 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 Neck is supple. No jugular venous distention (JVD). He has a central line on the right side. Oropharynx is clear with no lesions or thrush. No adenopathy. LABORATORY DATA: White count 6.1, hemoglobin 11, hematocrit 31.8, platelets 126, which has improved from 77. ESR 13. Sodium 137, potassium 4.1, chloride 104, bicarbonate 31, BUN 12, creatinine 0.58, glucose 101, calcium 7.8, bilirubin 0.6, AST 44, ALT 31, alkaline phosphatase 62, CRP 21.7, TSH 1.7. Hepatitis A negative, hepatitis B surface antigen, peak core IgM negative. Hepatitis C antibody positive. Hepatitis C RNA pending. Monoscreen negative. HIV negative. Heparin-induced antibodies pending. Blood cultures 06/10/2019, 06/11/2019 - three sets are no growth after 24 hours. Sputum cultures is pending. Sputum Gram stain has many white cells, gram-positive cocci in pairs, chains and clusters, few yeastlike organisms. IMAGING STUDIES: C-spine x-ray is normal. Thoracic MRI shows a minor disc bulge at T7-T8 without spinal cord compression. Chest x-ray showed multifocal opacities, diffuse bilaterally consistent with septic emboli. 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 He is clinically improving. His fevers have resolved. The patient denies using IV drugs in the past 5 years. He could have had a septic phlebitis of the left forearm from his injury that has seeded his tricuspid valve and led to his pulmonary embolism. PLAN: Discontinue IV Zosyn. There is no need to cover broad spectrum. Continue IV vancomycin, currently on a gram every 6 hours. Keep vancomycin trough between 15 and 20. His vancomycin level was 8. The patient has documented three negative blood cultures on 06/10/2019. He will need at least 4 weeks of IV antibiotics. If clinically he improves, and there is no question that he is not at risk of relapse from IV use, his mother at present at the hospital has stated that she would take him home if he needs to be home on IV antibiotic, and he has agreed. PLAN: To continue with IV vancomycin for the time being, switch his central line to a peripherally inserted central catheter (PICC) line next week. Obtain ultrasound of left upper extremity to rule out septic phlebitis as the source of infection. Thank you for consultation Also, please note, that the patient has a positive hepatitis C antibody with slightly elevated AST, and he might have chronic hepatitis C, which he is not aware of. Will relay to him this information once RNA is available. MAGGY
[2019-06-13 22:00] VITALS: BP 131/83
[2019-06-14] MEDS: VANCOMYCIN HCL 1,000 MG, VIAL MATE ADAPTER 1 EACH in D5W 250 ML IV SCH (02:18)
[2019-06-14 05:32] LABS: BASO % 0.4 % (0.0-1.0); EOS # 0.2 10^3/uL (0.0-0.50); EOS % 2.9 % (0.0-3.0); HEMATOCRIT 28.6 % (42.0-52.0); HEMOGLOBIN 9.7 g/dl (13.5-17.5); LYMPH % 18.7 % (24.0-44.0); MEAN CORPUSCULAR HEMOGLOBIN 30.2 pg (27.0-33.0); MEAN CORPUSCULAR HGB CONC 33.9 g/dl (32.0-36.5); MEAN CORPUSCULAR VOLUME 89.1 fl (80.0-96.0); MONO # 0.5 10^3/uL (0.0-0.8); MONO % 9.4 % (0.0-5.0); NEUTROPHILS # 3.8 10^3/uL (1.8-7.7); NEUTROPHILS % 67.9 % (36.0-66.0); PLATELET COUNT, AUTOMATED 195 10^3/uL (150-450); RED BLOOD COUNT 3.21 10^6/uL (4.30-6.10); WHITE BLOOD COUNT 5.6 10^3/uL (4.0-10.0)
[2019-06-14 05:51] LABS: BLOOD UREA NITROGEN 14 MG/DL (7-18); CALCIUM LEVEL 7.6 MG/DL (8.5-10.1); CARBON DIOXIDE LEVEL 28 MEQ/L (21-32); CHLORIDE LEVEL 104 MEQ/L (98-107); CREATININE FOR GFR 1.06 MG/DL (0.70-1.30); GLOMERULAR FILTRATION RATE > 60.0 (>60); GLUCOSE, FASTING 100 MG/DL (70-100); POTASSIUM SERUM 4.9 MEQ/L (3.5-5.1); SODIUM LEVEL 136 MEQ/L (136-145)
[2019-06-14 06:00] VITALS: BP 129/81
[2019-06-14] MEDS: KETOROLAC 30 MG/ML VIAL (J1885) IV SCH ×3 (06:10→17:06)
[2019-06-14] MEDS: traMADol 50 MG TAB PO SCH ×3 (08:58→20:21)
[2019-06-14] MEDS: NICOTINE 14 MG/24 HR TRANSDERMAL TD SCH (09:34)
[2019-06-14] MEDS: POTASSIUM CHLORIDE 10 MEQ SR TABLET PO SCH ×2 (09:34→20:21)
[2019-06-14] MEDS: D5W/0.45% SODIUM CHLORIDE 1,000 ML IV SCH ×2 (09:44→17:06)
[2019-06-14] MEDS: BUPRENORPHINE 8 MG SL SCH ×3 (09:55→20:20)
[2019-06-14 10:21] VITALS: BP 128/81; PULSE 86
[2019-06-14 10:51] VITALS: BP 129/80
--- NOTE | 2019-06-14 11:46 | REPVR ---
EXAM: US Duplex Left Upper Extremity Veins, Limited EXAM DATE/TIME: 06/12/2019 6:56 PM CLINICAL HISTORY: 34 years old, male; Pain; Arn, upper; Left; Additional info: Left arm TECHNIQUE: Imaging protocol: Real-time Duplex ultrasound of the Left Upper Extremity with 2-D chaudhari scale, color Doppler flow and spectral waveform analysis with image documentation. Limited exam focused on the left upper extremity veins. COMPARISON: No relevant prior studies available. FINDINGS: Left deep veins: Unremarkable. Axillary and brachial veins are patent throughout without thrombus. Normal Doppler waveforms. Normal compressibility and/or augmentation response. Visualized internal jugular and subclavian veins are patent. Left superficial veins: Unremarkable. Visualized cephalic and basilic veins are patent without thrombus. Soft tissues: Unremarkable. IMPRESSION: No acute findings. No evidence of deep vein thrombosis. Electronically signed by: Mj Anne On 06/14/2019 11:46:26 AM
[2019-06-14] MEDS ORDERED: SODIUM CHLORIDE 0.9% INJ 10 ML SYR IV PRN (12:15)
[2019-06-14] MEDS: SODIUM CHLORIDE 0.9% INJ 10 ML SYR IV SCH ×2 (12:27→21:18)
--- NOTE | 2019-06-14 12:56 | IPN ---
DATE: 06/13/2019 Patient seen at the bedside. Complains of generalized pain every where which is slightly improved with IV Toradol. He is tolerating his diet well. Maximum temperature (t-max) was 100.0. Still on Vancomycin. Vital signs: Maximum temperature (t-max) 100, current temperature 98.3, pulse 86, respiratory rate 18, 118, 63, 99% 2 liters nasal canal. GENERALLY: Awake, alert, oriented times three. Answering questions appropriately. Right internal jugular central venous catheter is seen in the neck. LUNGS: Diminished crackles bilaterally. No wheezing or rhonchi. HEART: S1, S2, sinus tachycardia. A systolic ejection murmur at the left lower sternal border. ABDOMEN: Soft, nontender, nondistended, positive bowel sounds. No hepatosplenomegaly. No CVA tenderness. EXTREMITIES: No cyanosis, clubbing, or pitting edema. SKIN: Multiple healed excoriations bilateral upper and lower extremities. LABORATORY DATA: Has been reviewed. MICROBIOLOGY: Has been reviewed. ASSESSMENT AND PLAN: This is a 34-year-old male with past medical history significant for IV drug use, has not used intravenous drugs for the past 5 years and sees a physician in [facility] on chronic buprenorphine with allergy to Suboxone presented with subjective fevers for the past 3 weeks, generalized malaise, admitted to [facility] on 06/08/2019-06/09/2019 for bilateral infiltrates thought to be community acquired pneumonia and was found to have blood culture positive for methicillin-resistant Staphylococcus aureus (MRSA), subsequently transferred to [facility] for further management. Due to hypotension a central line was placed and patient was transferred. He was found on transesophageal echocardiogram at [facility] to have MRSA endocarditis. ACUTE ISSUES: 1. MRSA endocarditis currently on IV vancomycin, Zosyn was discontinued due to no signs of pneumonia. Patient most likely has bilateral septic emboli in the lungs. Patient underwent transesophageal echo by Dr. Kaufman on 06/11/2019 showing moderate tricuspid regurgitation secondary to vegetation. His current main IV vancomycin most likely due to reliable support services with the mother being in the medical field patient is most likely going to need 4-6 weeks of IV antibiotics IV PICC line unless blood cultures have remained negative. 2. Bilateral septic emboli in the lungs due to MRSA bacteremia. Previously on Zosyn which had been discontinued as this is not a pneumonia and IV vancomycin for treatment. 3. Nicotine abuse. Cigarette smoking cessation has been provided. Currently nicotine replacement therapy. 4. History of polysubstance abuse with prescription medications, morphine, Fentanyl, Percocet, and oxycodone. History of IV heroin and cocaine use and still using marijuana recreationally for his chronic back pain. He is currently on buprenorphine managed by a [facility] physician. Patient says his last use of IV drugs was about 5 years ago. 5. Thrombocytopenia. Most likely secondary to sepsis which improved with IV antibiotics. Heparin-induced antibody panel has been sent, but not available. DISPOSITION: Patient is still hypoxic from the bilateral septic emboli and will need to continue present management for the next 3-4 days. He will need a PICC line week. Left upper extremity ultrasound was obtained in order to rule out septic phlebitis as cause for patient's MRSA pneumonia the result of which is still unavailable. MTDD
--- NOTE | 2019-06-14 13:39 | PHACANCOPD ---
PHARMACY VANCOMYCIN DOSING Pt Demographics Demographics Patient Age:34 , Weight:76.000 , Gender: male Adjusted Body Weight Events Past 24 Hours Events Past 24 Hours: YES: Change in CrCl; NO: Dialysis, Diuretic Therapy, Fever, Elevation in WBC, Pending Diagnostics, Pending Procedures, Other Vancomycin Vancomycin indication: MRSA BACTEREMIA, MULTIFOCAL PNA & SEPSIS Vancomycin Target Ranges: 10-20 mcg/ml Vancomycin Load Y/N: Yes Load Dose Date Time Vancomycin Load Dose: 1GM Date: 06/10/19 Time: 11:45AM @ [facility] Vancomycin Dose Date: 06/15/19. Current Vancomycin Dose: [1g IV Q12H @06] Date: 06/13/19. Current Vancomycin Dose: [1g IV Q8H @18] Date: 06/12/19. Current Vancomycin Dose: [1GM IV Q6H] Intermittent Dosing?: No Labs Labs Item Value Date Time Vancomycin Level Trough 26.6 UG/ML *H 06/13/19 1210 Vancomycin Level Trough 18.4 UG/ML 06/12/19 1807 Creatinine 0.68 MG/DL L 06/11/19 0618 Creatinine 0.58 MG/DL L 06/12/19 0545 Creatinine 0.82 MG/DL 06/13/19 0742 Random Vancomycin Level 25.6 UG/ML 06/14/19 1225 Creatinine 1.06 MG/DL 06/14/19 0519 Micro Microbiology 06/11/19 Blood Culture - Preliminary, Resulted No Growth after 72 hours. All specime... 06/11/19 Blood Culture - Preliminary, Resulted No Growth after 72 hours. All specime... 06/10/19 Blood Culture - Preliminary, Resulted No Growth after 72 hours. All specime... 06/11/19 Gram Stain - Final, Complete 06/11/19 Sputum Culture - Final, Complete Staph.aureus Methicillin Resis Yeast Like Organism 06/11/19 Urine Culture - Final, Complete Creatinine Clearance Date:06/14/19. Creatinine Clearance: [~105 ml/min]. Date:06/13/19. Creatinine Clearance: [>100 ml/min]. Date:06/12/19. Creatinine Clearance: [>80 ml/min]. Pending Labs Vanco trough 06/15 @05:00 Assessment and Plan Maintaining Current Dose?: No Reason for dose change: Change in serum Cr Pharmacist Note Pharmacist Note Date: 06/14/19. Pharmacist note: SCr was significantly elevated from yesterday again, I held his morning dose of vancomycin and his random level drawn ~10 hours post dose was 25.6 mcg/ml. I have reduced his dose to 1g IV q12h to restart tomorrow morning. I have a trough scheduled before his morning dose tomorrow to ensure his level is within range. Date: 06/13/19. Pharmacist note: repeat vanco trough this afternoon was high at 26.6 mcg/ml. SCr is significantly changed from yesterday. I have reduced him back to 1g q8h to start ~6 hours post trough. I will repeat a trough tomorrow. We will continue to monitor and make adjustments as necessary. Edmundo López Pharm.D. Jun 14, 2019 13:39
[2019-06-14] MEDS ORDERED: ALBUTEROL SULFATE 2.5 MG/0.5 ML INH NEB SOLN NEB ONE (19:45)
[2019-06-14] MEDS ORDERED: KETOROLAC 30 MG/ML VIAL (J1885) IV SCH (20:00)
[2019-06-14] MEDS: IBUPROFEN 600 MG TAB PO PRN (21:15)
--- NOTE | 2019-06-14 21:36 | IPN ---
DATE OF SERVICE: 06/14/2019 The patient is seen and examined at the bedside, chart has been reviewed. The patient says that he has been having occasional hemoptysis, no worsening shortness of breath. No fever or chills. Plans are for 4 to 6 weeks of intravenous antibiotics. Infectious disease specialist has contacted his mother, who will try to help out the patient as he will be going to [place] and that he has spoken with his girlfriend and his children. Until completion of his IV antibiotics, his mother will help supervise. No other issues overnight. The patient is ambulating well, tolerating his diet. He does not have any chills. No recurrent fevers. He continues to complain of aches and pains everywhere. No discitis on MRI of the lumbar spine. Venous Doppler of the left upper extremity shows no VTE. No formal report to rule out thrombophlebitis. PHYSICAL EXAMINATION: Vital signs: Temperature 99.3, pulse 94, respiratory rate 18, blood pressure 129/81, 95% on room air. GENERAL: The patient is awake, alert, oriented times three. Answering questions appropriately. Triple lumen catheter noted in the right upper neck with no erythema or significant tenderness. No fluctuance. The patient is able to converse with no respiratory accessory muscle use. No conversational dyspnea. LUNGS: Clear to auscultation. No wheezing, rales or rhonchi. HEART: S1, S2, episodes of sinus tachycardia. ABDOMEN: Soft, nontender, nondistended. Positive bowel sounds. No rebound, guarding or hepatosplenomegaly. EXTREMITIES: Multiple healed scabs on bilateral upper and lower extremities. LABORATORY DATA/IMAGING STUDIES/MICROBIOLOGY: Have been reviewed. ASSESSMENT AND PLAN: This is a 34-year-old male with past medical history significant for IV drug use with heroin, cocaine. He has been clean for the past 5 years. He follows with a physician in [facility], on chronic buprenorphine with allergy to Suboxone, presented with generalized malaise, subjective fevers for the past 3 weeks, and decrease in appetite. The patient says that he had an injury to his left wrist at work, treated at [facility] with super glue and healed well without any antibiotics. The week after the patient started having subjective fevers, decreased appetite, and muscle aches, weakness and anorexia. He presented to [facility] with cough and shortness of breath and found to have bilateral infiltrates and treated for pneumonia with ceftriaxone and azithromycin. Blood cultures grew out methicillin resistant Staphylococcus aureus (MRSA) bacteremia. CT of the chest showed no pulmonary embolism. Echocardiogram showed no vegetations. The became hypotensive, status post IV fluids boluses and central line placement and was subsequently transferred to [facility] for further management of possible endocarditis. ACUTE ISSUES: 1. 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 The patient underwent transesophageal echocardiogram on 06/11/2019 showing moderate tricuspid regurgitation secondary to vegetations in the tricuspid valve. The patient was initially on vancomycin and Zosyn on hospital admission to cover for possible pneumonia; however, CT of the chest was more convincing of septic emboli and Zosyn was discontinued. Infectious disease specialist, Dr. Paulina Alvarado, has been consulted for further management with recommendations for 4 weeks of IV antibiotics to be supervised by the patient's mother in [place]. At this time, we will keep the patient over the weekend due to persistent shortness of breath from the septic emboli and potentially with negative blood cultures place a peripherally inserted central catheter (PICC) line and discontinue the central line and arrange for 4 weeks of IV antibiotics in [place], where the patient will be residing with his mother. 2. Bilateral septic emboli due to MRSA endocarditis. Currently on IV vancomycin. The patient does not need heparinization on Lovenox and is expected to respond well to IV antibiotics. 3. History of polysubstance abuse with prescription medications, morphine, Fentanyl, Percocet, and oxycodone and history of IV heroin and cocaine use. He is still using marijuana recreationally for his chronic back pain. He is managed by a [facility] physician who does video conferencing with him monthly and prescribes buprenorphine due to adverse effects with Suboxone in the past. 4. Nicotine abuse. Tobacco cessation counseling has been given. He is currently on nicotine replacement therapy. 5. Thrombocytopenia. Most likely secondary to sepsis. HIV was sent but not available. His platelet count is significantly improved with treatment for endocarditis. 6. Positive urine drug screen for marijuana. Admits to continue to use recreationally. 7. History of bipolar disorder, currently on no medications. 8. Splenomegaly with complaint of left upper quadrant/flank pain, early satiety, at risk for traumatic injury and splenic rupture. DISPOSITION: IV antibiotics for 4 weeks, PICC line on Sunday or Sunday and discontinue central line and arrange home antibiotics in [place] where his mother can supervise. The patient will need a primary care physician, as well as an infectious disease specialist in [place] prior to hospital discharge. MAGGY
[2019-06-14 22:00] VITALS: BP 131/86
[2019-06-15] MEDS: SODIUM CHLORIDE 0.9% INJ 10 ML SYR IV SCH ×3 (05:10→20:13)
[2019-06-15] MEDS: D5W/0.45% SODIUM CHLORIDE 1,000 ML IV SCH (05:11)
[2019-06-15] MEDS ORDERED: KETOROLAC 30 MG/ML VIAL (J1885) IV ONE (05:30)
[2019-06-15 05:35] LABS: BASO % 0.3 % (0.0-1.0); EOS # 0.2 10^3/uL (0.0-0.50); EOS % 3.4 % (0.0-3.0); HEMATOCRIT 29.1 % (42.0-52.0); HEMOGLOBIN 9.7 g/dl (13.5-17.5); LYMPH # 1.1 10^3/uL (1.5-4.5); LYMPH % 18.2 % (24.0-44.0); MEAN CORPUSCULAR HEMOGLOBIN 29.7 pg (27.0-33.0); MEAN CORPUSCULAR HGB CONC 33.3 g/dl (32.0-36.5); MONO # 0.6 10^3/uL (0.0-0.8); MONO % 10.1 % (0.0-5.0); NEUTROPHILS # 4.2 10^3/uL (1.8-7.7); NEUTROPHILS % 67.4 % (36.0-66.0); PLATELET COUNT, AUTOMATED 263 10^3/uL (150-450); RED BLOOD COUNT 3.27 10^6/uL (4.30-6.10); WHITE BLOOD COUNT 6.2 10^3/uL (4.0-10.0)
[2019-06-15 06:00] VITALS: BP 132/86
[2019-06-15 06:00] LABS: BLOOD UREA NITROGEN 14 MG/DL (7-18); CALCIUM LEVEL 7.8 MG/DL (8.5-10.1); CARBON DIOXIDE LEVEL 28 MEQ/L (21-32); CHLORIDE LEVEL 107 MEQ/L (98-107); CREATININE FOR GFR 1.12 MG/DL (0.70-1.30); GLOMERULAR FILTRATION RATE > 60.0 (>60); GLUCOSE, FASTING 102 MG/DL (70-100); POTASSIUM SERUM 5.3 MEQ/L (3.5-5.1); SODIUM LEVEL 139 MEQ/L (136-145)
[2019-06-15] MEDS: VANCOMYCIN HCL 1,000 MG, VIAL MATE ADAPTER 1 EACH in D5W 250 ML IV SCH ×2 (06:02→18:28)
[2019-06-15] MEDS: traMADol 50 MG TAB PO SCH ×3 (08:58→20:13)
[2019-06-15] MEDS: BUPRENORPHINE 8 MG SL SCH ×3 (08:59→20:12)
[2019-06-15] MEDS: NICOTINE 14 MG/24 HR TRANSDERMAL TD SCH (09:00)
[2019-06-15 15:10] VITALS: BP 129/83
[2019-06-15] MEDS: IBUPROFEN 600 MG TAB PO PRN ×2 (15:37→23:38)
[2019-06-15] MEDS ORDERED: PROMETHAZINE INJ 25 MG/ML VIAL (J2550) IV ONE (15:45)
[2019-06-15 22:00] VITALS: BP 122/81
[2019-06-16] MEDS: SODIUM CHLORIDE 0.9% INJ 10 ML SYR IV SCH ×3 (04:51→20:29)
[2019-06-16 05:20] LABS: BASO % 0.5 % (0.0-1.0); EOS # 0.2 10^3/uL (0.0-0.50); EOS % 3.7 % (0.0-3.0); HEMATOCRIT 28.4 % (42.0-52.0); HEMOGLOBIN 9.6 g/dl (13.5-17.5); LYMPH # 1.4 10^3/uL (1.5-4.5); LYMPH % 22.7 % (24.0-44.0); MEAN CORPUSCULAR HEMOGLOBIN 29.4 pg (27.0-33.0); MEAN CORPUSCULAR HGB CONC 33.8 g/dl (32.0-36.5); MEAN CORPUSCULAR VOLUME 87.1 fl (80.0-96.0); MONO # 0.5 10^3/uL (0.0-0.8); MONO % 8.7 % (0.0-5.0); NEUTROPHILS % 63.8 % (36.0-66.0); PLATELET COUNT, AUTOMATED 347 10^3/uL (150-450); RED BLOOD COUNT 3.26 10^6/uL (4.30-6.10); WHITE BLOOD COUNT 6.2 10^3/uL (4.0-10.0)
[2019-06-16 05:42] LABS: BLOOD UREA NITROGEN 19 MG/DL (7-18); CALCIUM LEVEL 7.6 MG/DL (8.5-10.1); CARBON DIOXIDE LEVEL 28 MEQ/L (21-32); CHLORIDE LEVEL 105 MEQ/L (98-107); CREATININE FOR GFR 1.27 MG/DL (0.70-1.30); GLOMERULAR FILTRATION RATE > 60.0 (>60); GLUCOSE, FASTING 85 MG/DL (70-100); SODIUM LEVEL 139 MEQ/L (136-145); VANCOMYCIN LEVEL TROUGH 21.9 UG/ML (10.0-20.0)
[2019-06-16 06:00] VITALS: BP 124/82
--- NOTE | 2019-06-16 06:05 | PHACANCOPD ---
PHARMACY VANCOMYCIN DOSING Pt Demographics Demographics Patient Age:34 , Weight:76.000 , Gender: male Adjusted Body Weight Vancomycin Vancomycin indication: MRSA BACTEREMIA, MULTIFOCAL PNA & SEPSIS Vancomycin Target Ranges: 10-20 mcg/ml Vancomycin Load Y/N: Yes Load Dose Date Time Vancomycin Load Dose: 1GM Date: 06/10/19 Time: 11:45AM @ [facility] Vancomycin Dose Date: 06/15/19. Current Vancomycin Dose: [1g IV Q12H @06] Date: 06/13/19. Current Vancomycin Dose: [1g IV Q8H @18] Date: 06/12/19. Current Vancomycin Dose: [1GM IV Q6H] Intermittent Dosing?: No Labs Micro Microbiology 06/11/19 Blood Culture - Preliminary, Resulted No Growth after 72 hours. All specime... 06/11/19 Blood Culture - Preliminary, Resulted No Growth after 72 hours. All specime... 06/10/19 Blood Culture - Final, Complete NO GROWTH AFTER 5 DAYS 06/11/19 Gram Stain - Final, Complete 06/11/19 Sputum Culture - Final, Complete Staph.aureus Methicillin Resis Yeast Like Organism 06/11/19 Urine Culture - Final, Complete Creatinine Clearance Date:06/14/19. Creatinine Clearance: [~105 ml/min]. Date:06/13/19. Creatinine Clearance: [>100 ml/min]. Date:06/12/19. Creatinine Clearance: [>80 ml/min]. Pending Labs Vanco trough 06/15 @05:00 Assessment and Plan Maintaining Current Dose?: No Reason for dose change: Trough too high Pharmacist Note Pharmacist Note Date 06/16/19: Trough came back today at 21.9 taken at 0454. Renal function has decreased for this patient with a CrCl of 88. As a result I have decreased the dose to vanco IV 750mg q12h starting @0700. I have scheduled a trough for 06/17 @0600. Will continue to monitor patient and adjust dose as needed. Date: 06/14/19. Pharmacist note: SCr was significantly elevated from yesterday again, I held his morning dose of vancomycin and his random level drawn ~10 hours post dose was 25.6 mcg/ml. I have reduced his dose to 1g IV q12h to restart tomorrow morning. I have a trough scheduled before his morning dose tomorrow to ensure his level is within range. Date: 06/13/19. Pharmacist note: repeat vanco trough this afternoon was high at 26.6 mcg/ml. SCr is significantly changed from yesterday. I have reduced him back to 1g q8h to start ~6 hours post trough. I will repeat a trough tomorrow. We will continue to monitor and make adjustments as necessary. NERISSA ADAMSON PHARMACY Jun 16, 2019 06:05
[2019-06-16] MEDS: IBUPROFEN 600 MG TAB PO PRN ×3 (06:30→22:30)
[2019-06-16] MEDS: VANCOMYCIN HCL 750 MG, VIAL MATE ADAPTER 1 EACH in D5W 250 ML IV SCH ×2 (06:51→18:48)
[2019-06-16] MEDS: traMADol 50 MG TAB PO SCH ×3 (08:06→20:29)
[2019-06-16] MEDS: PROMETHAZINE INJ 25 MG/ML VIAL (J2550) IV PRN ×2 (08:06→15:06)
[2019-06-16] MEDS: BUPRENORPHINE 8 MG SL SCH ×3 (08:07→20:28)
[2019-06-16] MEDS: NICOTINE 14 MG/24 HR TRANSDERMAL TD SCH (08:07)
[2019-06-16 14:48] VITALS: BP 123/81
--- NOTE | 2019-06-16 17:55 | IPN ---
DATE: 06/15/2019 Patient continues to complain of hemoptysis and cough, unable to sleep at night. Patient did receive ibuprofen for pain across the chest secondary to bilateral septic emboli. He is on tramadol 100 mg three times a day and Toradol without relief. Creatinine is normal at 1.12 but hyperkalemic at 5.3. Patient is afebrile with no complaints of chills. Patient complains of pain along the left neck. VITAL SIGNS: Temperature 98.2, pulse 85, respiratory rate 18, blood pressure 132/86, 98% on room air. GENERAL: Patient is awake, alert and oriented times three, answering questions appropriately. Triple lumen catheter noted in the right upper neck with no erythema, tenderness or induration. No fluctuance. Patient is able to converse with no respiratory accessory muscle use without conversational dyspnea. Anicteric sclerae. No jaundice. No thyromegaly or cervical lymphadenopathy. LUNGS: Clear to auscultation. No wheezes, rales, or rhonchi. HEART: S1, S2, sinus tachycardia. Systolic ejection murmur in the left lower sternal border. ABDOMEN: Soft, nontender, nondistended. Positive bowel sounds. No rebound, guarding, or hepatosplenomegaly. EXTREMITIES: Multiple healed scabs in bilateral upper and lower extremities and excoriations that are nonpurulent. No splinter hemorrhages are noted. Laboratory data and microbiology have been reviewed and notable for sputum only showing methicillin-resistant Staphylococcus aureus (MRSA) and yeast-like organism. Vascular ultrasound of the left upper arm shows no acute findings. No evidence of deep vein thrombosis (DVT). ASSESSMENT AND PLAN: This is a 34-year-old male with past medical history of IV drug use with heroin, cocaine, marijuana, has been clean for five years, follows with a physician in [facility], on chronic buprenorphine with allergy to Suboxone, presented with generalized malaise, subjective fevers for three weeks with decreased appetite. Patient had an injury of the left wrist at work treated at [facility] with Superglue, healed well without any antibiotics. A week after, he developed subjective fevers, anorexia, muscle aches and weakness and shortness of breath. At [facility], he was found to have bilateral infiltrates on chest x-ray, treated with ceftriaxone and azithromycin. Blood cultures grew out methicillin-resistant Staphylococcus aureus (MRSA). CT chest showed no pulmonary embolism (PE). Echocardiogram showed no vegetations. Patient became hypotensive status post IV fluid boluses and central line placement with right internal jugular (IJ) triple lumen catheter and transferred to [facility] for further management. ACUTE ISSUES: 1. Methicillin-resistant Staphylococcus aureus (MRSA). Underwent transesophageal echocardiogram on 06/11/2019 with vegetations in the tricuspid valve and tricuspid regurgitation. Patient was initially on vancomycin and Zosyn on admission for possible pneumonia and gram-negative infection. However, CT chest was more convincing of septic emboli and Zosyn was discontinued. Infectious disease (ID), Dr. Alvarado, was consulted and recommends four weeks of IV antibiotics to be supervised by the patient's mother in [place]. Patient is to be kept over the weekend due to shortness of breath from septic emboli. Once blood cultures remain negative, peripherally inserted central catheter (PICC) line to be placed on Sunday or Sunday and IV antibiotics to be done in [place] where the patient will be residing with his mother to supervise. 2. Bilateral septic emboli with episodes of hemoptysis due to MRSA endocarditis. Currently on IV vancomycin. No heparinization, on Lovenox as he has improved with IV antibiotics. 3. Tricuspid regurgitation, secondary to MRSA endocarditis. Patient would not be a candidate for valve replacement. He is currently on IV vancomycin. Serial echocardiograms for symptoms and referral to cardiology if patient is symptomatic. 4. History of polysubstance abuse with prescription medications, morphine, Fentanyl, Percocet, oxycodone, history of IV heroin and cocaine use. He still uses marijuana recreationally for his chronic back pain. He is managed by a physician in [facility] who does video conferencing with monthly and prescribes buprenorphine due to adverse effects with Suboxone in the past. 5. Nicotine abuse. Tobacco cessation counseling has been provided. He is currently on nicotine replacement therapy. 6. Thrombocytopenia, resolved, secondary to sepsis. HIV was sent but not available. Platelet count improved with treatment for endocarditis. 7. Positive urine drug screen for marijuana. Admits to continued to use recreationally. 8. Bipolar disorder, on no medications. 9. Splenomegaly. Does not complain of any left upper quadrant pain, early satiety, at risk for traumatic injury and splenic rupture. DISPOSITION: Peripherally inserted central catheter (PICC) line Sunday or Sunday. Discontinue triple lumen catheter once the PICC line has been placed. IV antibiotics will be arranged in [place] with a new primary care physician for four weeks of IV antibiotics under his mother's supervision. MAGGY
--- NOTE | 2019-06-16 18:57 | REP ---
Left foot series: Four views. History: Left foot pain. Endocarditis. Findings: Four views of the left foot show normal bones, joints and soft tissues. No fracture or subluxation is seen. There is a small Achilles calcaneal spur. Impression: No acute bony abnormality. Electronically Signed by Mian Rodríguez MD 06/16/2019 06:49 P
--- NOTE | 2019-06-16 18:58 | REP ---
Left knee series: Five views. History: Left knee pain. Findings: Five views of the left knee demonstrate normal bones, joints and soft tissues. Impression: Negative radiographs of the left knee. Electronically Signed by Mian Rodríguez MD 06/16/2019 06:49 P
--- NOTE | 2019-06-16 21:03 | IPN ---
DATE: 06/16/2019 Patient still complained about left-sided neck pain as well as chronic back pain, pleuritic chest pain due to pulmonary embolism. Patient is on tramadol 100 mg three times a day along with ibuprofen 600 every six hours as needed. Patient had been on Toradol for five days which has been discontinued due to the five-day limitation as it could cause renal failure. He is continued on vancomycin at this time managed by doctor of pharmacy. No complaints of chills. He still has occasional hemoptysis and dyspnea on exertion due to septic emboli bilateral. Defer to infectious disease as to the timing of peripherally inserted central catheter (PICC) line placement and removal of the triple lumen catheter in the right internal jugular for outpatient antibiotics. Patient will be living with his mother in [place] to complete four weeks of IV antibiotics. Temperature 98.1, pulse 74, respiratory rate 18, blood pressure 124/82, 96% on room air. GENERAL: He is awake, alert and oriented times three, answering questions appropriately. No conversational dyspnea. No use of respiratory accessory muscles. No conversational dyspnea. Anicteric sclerae. No jaundice. LUNGS: Clear to auscultation. No wheezes, rales, or rhonchi. HEART: S1, S2, sinus tachycardia at times. ABDOMEN: Soft, nontender, nondistended. Positive bowel sounds. No rebound, guarding, or hepatosplenomegaly. EXTREMITIES: Multiple healed scabs on bilateral upper and lower extremities. Laboratory data, imaging studies, and microbiology have all been reviewed. ASSESSMENT AND PLAN: This is a 34-year-old male with a past medical history significant for IV drug use with heroin and cocaine. He has been clean for the past five years and follows with a physician in [facility] for his buprenorphine. He presented to the emergency room with three weeks ago with generalized malaise, subjective fevers, decrease in appetite. Patient says he had an injury to his left wrist at work, treated at [place] with Superglue and healed without antibiotics. A week later, he was having subjective fevers. At [facility], he was found to have bilateral infiltrates on chest x- ray with complaints of shortness of breath, treated and admitted with ceftriaxone and azithromycin for pneumonia. Blood culture grew out methicillin-resistant Staphylococcus aureus (MRSA). CT chest showed no pulmonary embolism. Echocardiogram showed no vegetation. Patient became hypotensive status post IV fluid boluses, central line placement right internal jugular, and therefore patient was subsequently transferred to [facility] for further management. ACUTE ISSUES: 1. Methicillin-resistant Staphylococcus aureus (MRSA) endocarditis. Transesophageal echocardiogram ([facility]) on 06/11/2019 showed moderate tricuspid regurgitation secondary to vegetations in tricuspid valve. Patient was initially on vancomycin and Zosyn on hospital admission for possible gram-negative pneumonia as CT chest was convincing for a septic emboli and Zosyn was discontinued. Per infectious disease specialist, the patient's mother in [place] can supervise the four weeks of IV antibiotics. Patient was kept over the weekend due to persistent dyspnea on exertion from septic emboli. He has remained with negative blood cultures during this admission. Timing of peripherally inserted central catheter (PICC) line insertion and four weeks of IV antibiotics and transfer of care to a physician in [place] still needs to be done. Mother is to supervise his care for the next four weeks until completion of antibiotics. 2. Bilateral septic emboli due to MRSA endocarditis. Patient continues to have episodes of hemoptysis as well as dyspnea on exertion. He does not need heparinization or Lovenox. He is currently managed with IV vancomycin to complete four more weeks as outpatient. 3. History of polysubstance abuse with prescription medications, oxycodone, Percocet, fentanyl, morphine, heroin and cocaine use. He admits he is still using marijuana recreationally for his chronic back pain. He is managed by a [facility] physician who does video conferencing once a month and gives him buprenorphine. 4. Tobacco abuse. Cessation counseling has been provided. He is on nicotine replacement therapy. 5. Positive urine drug screen for marijuana. Admits to continued use recreationally. 6. History of bipolar disorder, on no medications. 7. Splenomegaly. No complaints of left upper quadrant pain, flank pain or early satiety but at risk of traumatic injury and splenic rupture. 8. Anemia. No acute indication for red blood cell (RBC) transfusion. 9. Hyperkalemia, resolved secondary to potassium supplementation which has been discontinued. DISPOSITION: Awaiting peripherally inserted central catheter (PICC) line placement. The timing of which to be recommended by infectious disease and four-weeks of antibiotics to be arranged in [place], [place] where he will be residing with his mother. MAGGY
[2019-06-16 21:59] LABS: ERYTHROCYTE SEDIMENTATION RATE 93 mm/hr (0-15)
[2019-06-16 22:00] VITALS: BP 124/81
[2019-06-17 06:00] VITALS: BP 127/84
[2019-06-17] MEDS: IBUPROFEN 600 MG TAB PO PRN ×2 (06:05→14:02)
[2019-06-17] MEDS: SODIUM CHLORIDE 0.9% INJ 10 ML SYR IV SCH ×3 (06:06→22:34)
[2019-06-17 06:50] LABS: C REACTIVE PROTEIN QUANTITATIV 8.69 MG/DL (0.00-0.30)
[2019-06-17 06:53] LABS: VANCOMYCIN LEVEL TROUGH 25.4 UG/ML (10.0-20.0)
[2019-06-17] MEDS: traMADol 50 MG TAB PO SCH ×3 (09:05→22:33)
[2019-06-17] MEDS: NICOTINE 14 MG/24 HR TRANSDERMAL TD SCH (09:05)
[2019-06-17] MEDS: BUPRENORPHINE 8 MG SL SCH ×3 (09:06→21:00)
--- NOTE | 2019-06-17 09:26 | IPN ---
DATE: 06/16/2019 Mr. Murillo is complaining of left knee pain with swelling and left foot pain at the base of the 4th toe. He has not had any fever or chills. He continued having hemoptysis and chest pain. The pain in his chest is mostly pleuritic. LABS: White count is 6.2, hemoglobin 9.6, hematocrit 28.4, platelets 347, 64% neutrophils, 22% lymphocytes. Sodium 139, potassium 5, chloride 105, bicarbonate 28, BUN 19, creatinine 1.27, glucose 85, calcium 7.6. Heparin-induced antibody 0.587. Hepatitis C antibody more than 11. Positive RNA. Negative mononucleosis screen. Urine Legionella antigen, pneumococcal antigen negative. Micro sputum cultures are positive for MRSA. Blood cultures on 06/10/2019 and 06/11/2019 are negative. On physical exam, temperature is 98.1, pulse 82, respirations 16, blood pressure 123/81, oxygen saturation 98% on room air. Heart: Normal S1, S2 with a systolic ejection murmur 2/6 left lower sternal border. Lungs: Diminished breath sounds at the bases. Abdomen is soft, nontender. No visceromegaly. Left knee tenderness medially above the knee joint. Normal range of motion. Left foot swollen with tenderness at the base of the 4th metatarsal. IMPRESSION: 1. Tricuspid valve endocarditis with septic emboli to the lungs on IV vancomycin currently at the dose of 750 mg every 12 hours. Patient tolerating well. 2. Hemoptysis due to septic emboli. Continue to monitor 3. History of drug abuse. Denies current IV drug use but continues on Suboxone and marijuana regularly. 4. Chronic hepatitis C, not treated. HIV negative. This will need to be taken care of as an outpatient once treatment for endocarditis is done PLAN: Continue with IV vancomycin. Switch his dose to 1.5 grams every 24 hours. Patient will be going home to his mother who lives in [facility], and therefore, followup will be at the [place]. Please research for infectious disease doctor at [place] [facility] so we can send him the record and I can make contact. The patient will need 4-6 weeks of IV antibiotic depending on clinical improvement. Followup CBC, C-reactive protein (CRP), erythrocyte sedimentation rate (ESR) in the morning. MTDD
[2019-06-17 14:00] VITALS: BP 132/88
[2019-06-17] MEDS: PROMETHAZINE INJ 25 MG/ML VIAL (J2550) IV PRN (14:01)
[2019-06-17 14:35] LABS: CALCIUM LEVEL 8.6 MG/DL (8.5-10.1); CREATININE FOR GFR 1.91 MG/DL (0.70-1.30); GLOMERULAR FILTRATION RATE 43.4 (>60); POTASSIUM SERUM 4.8 MEQ/L (3.5-5.1)
--- NOTE | 2019-06-17 15:10 | PHACANCOPD ---
PHARMACY VANCOMYCIN DOSING Pt Demographics Demographics Patient Age:34 , Weight:76.000 , Gender: male Adjusted Body Weight Events Past 24 Hours Events Past 24 Hours: YES: Change in CrCl; NO: Dialysis, Diuretic Therapy, Fever, Elevation in WBC, Pending Diagnostics, Pending Procedures, Other Vancomycin Vancomycin indication: MRSA BACTEREMIA, MULTIFOCAL PNA & SEPSIS Vancomycin Target Ranges: 10-20 mcg/ml Vancomycin Load Y/N: Yes Load Dose Date Time Vancomycin Load Dose: 1GM Date: 06/10/19 Time: 11:45AM @ [facility] Vancomycin Dose Date: 06/15/19. Current Vancomycin Dose: [1g IV Q12H @06] Date: 06/13/19. Current Vancomycin Dose: [1g IV Q8H @18] Date: 06/12/19. Current Vancomycin Dose: [1GM IV Q6H] Intermittent Dosing?: No Labs Labs Vital Signs Label Value Date Time Patient Temperature 98.1 degrees F 06/17/19 1400 Temperature Source Oral 06/17/19 1400 Patient Temperature 98.3 degrees F 06/17/19 0600 Temperature Source Oral 06/17/19 0600 Patient Temperature 98.7 degrees F 06/16/19 2200 Temperature Source Oral 06/16/19 2200 Item Value Date Time White Blood Count 6.2 10^3/uL 06/16/19 0454 White Blood Count 6.2 10^3/uL 06/15/19 0514 White Blood Count 5.6 10^3/uL 06/14/19 0519 Vancomycin Level Trough 25.4 UG/ML *H 06/17/19 0608 Vancomycin Level Trough 21.9 UG/ML H 06/16/19 0454 Vancomycin Level Trough 13.7 UG/ML 06/15/19 0514 Creatinine 1.91 MG/DL H # 06/17/19 1401 Creatinine 1.27 MG/DL 06/16/19 0454 Creatinine 1.12 MG/DL 06/15/19 0514 Micro Microbiology 06/11/19 Blood Culture - Final, Complete NO GROWTH AFTER 5 DAYS 06/11/19 Blood Culture - Final, Complete NO GROWTH AFTER 5 DAYS 06/10/19 Blood Culture - Final, Complete NO GROWTH AFTER 5 DAYS 06/11/19 Gram Stain - Final, Complete 06/11/19 Sputum Culture - Final, Complete Staph.aureus Methicillin Resis Yeast Like Organism 06/11/19 Urine Culture - Final, Complete Creatinine Clearance Date:06/14/19. Creatinine Clearance: [~105 ml/min]. Date:06/13/19. Creatinine Clearance: [>100 ml/min]. Date:06/12/19. Creatinine Clearance: [>80 ml/min]. Pending Labs Vanco trough 06/15 @05:00 Assessment and Plan Maintaining Current Dose?: No Reason for dose change: Trough too high Pharmacist Note Pharmacist Note 06/17/19: Trough today drawn at 0603 before 0700 dose resulted at 25.4mcg/ml. Based on this patient's ke of 0.053 we held the dose until 1600. We have changed the Vanco order to 1G IV Q24H with a new trough scheduled for tomorrow. Pt's SCr has elevated significantly over the last 2 days. We will continue to monitor and adjust dose as needed. Date 06/16/19: Trough came back today at 21.9 taken at 0454. Renal function has decreased for this patient with a CrCl of 88. As a result I have decreased the dose to vanco IV 750mg q12h starting @0700. I have scheduled a trough for 06/17 @0600. Will continue to monitor patient and adjust dose as needed. Date: 06/14/19. Pharmacist note: SCr was significantly elevated from yesterday again, I held his morning dose of vancomycin and his random level drawn ~10 hours post dose was 25.6 mcg/ml. I have reduced his dose to 1g IV q12h to restart tomorrow morning. I have a trough scheduled before his morning dose tomorrow to ensure his level is within range. Date: 06/13/19. Pharmacist note: repeat vanco trough this afternoon was high at 26.6 mcg/ml. SCr is significantly changed from yesterday. I have reduced him back to 1g q8h to start ~6 hours post trough. I will repeat a trough tomorrow. We will continue to monitor and make adjustments as necessary. DASHAWN CHADWICK PHARMACY Jun 17, 2019 15:10
[2019-06-17] MEDS ORDERED: VANCOMYCIN HCL 1,000 MG, VIAL MATE ADAPTER 1 EACH in D5W 250 ML IV SCH (16:00)
--- NOTE | 2019-06-17 16:36 | IPNPDOC ---
Subjective Date Seen The patient was seen on 06/17/19. Subjective Chief Complaint/HPI Says the central line is bothering him . Also complains of nausea and absence of appetite, only able to drink water and gigerale. No fever or chills, no chest pain or SOB , no abdominal pain nausea or vomiting or diarrhea. Objective Physical Examination General Exam: Positive: Alert, Cooperative, No Acute Distress Eye Exam: Positive: PERRLA, Conjunctiva & lids normal, EOMI; Negative: Sclera icteric ENT Exam: Positive: Atraumatic, Mucous membr. moist/pink, Pharynx Normal Neck Exam: Positive: Supple; Negative: JVD, thyromegaly Chest Exam: Positive: Clear to auscultation, Normal air movement Heart Exam: Positive: Tachycardic, Regular Rhythm, Normal S1, Normal S2; Negative: Gallops, Murmurs, Rubs Abdomen Exam: Positive: Normal bowel sounds, Soft; Negative: Tenderness, Hepatospenomegaly Extremity Exam: Positive: Normal pulses; Negative: Clubbing, Cyanosis, Edema Skin Exam: Positive: Nl turgor and temperature; Negative: Rash, Breakdown Assessment /Plan Assessment This is a 34-year-old male with a past medical history significant for IV drug use with heroin and cocaine now on Suboxone, hepatitis C, neg HIV, He has been clean for the past five years and follows with a physician in [facility] for his buprenorphine. He presented to the emergency room with three weeks ago with generalized malaise, subjective fevers, decrease in appetite. Patient says he had an injury to his left wrist at work, treated at [place] with Superglue and healed without antibiotics. A week later, he was having subjective fevers. At [facility], he was found to have bilateral infiltrates on chest x-ray with complaints of shortness of breath, treated and admitted with ceftriaxone and azithromycin for pneumonia. Blood culture grew out methicillin- resistant Staphylococcus aureus (MRSA). CT chest showed no pulmonary embolism. Echocardiogram showed no vegetation. Patient became hypotensive status post IV fluid boluses, central line placement right internal jugular, and therefore patient was subsequently transferred to [facility] for further management. New HILDA creatinine up to 1.9 vanco trough high . dose to be adjusted by pharmacy. ibuprofen stopped. 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 Transesophageal echocardiogram ([facility]) on 06/11/2019 showed moderate tricuspid regurgitation secondary to vegetations in tricuspid valve. Vancomycin 1.5 gm q24 hours for 4 to 6 weeks. Needs ID near his Mother's house to follow up with as he will be staying with his mom till completion of treatment. Bilateral septic emboli due to MRSA endocarditis. Patient continues to have episodes of hemoptysis as well as dyspnea on exertion. He does not need heparinization or Lovenox. He is currently managed with IV vancomycin to co mplete four more weeks as outpatient. History of polysubstance abuse with prescription medications, oxycodone, Percocet, fentanyl, morphine, heroin and cocaine use. He admits he is still using marijuana recreationally for his chronic back pain. He is managed by a [facility] physician who does video conferencing once a month and gives him buprenorphine. Tobacco abuse. Cessation counseling has been provided. He is on nicotine replacement therapy. Positive urine drug screen for marijuana. Admits to continued use recreationally. History of bipolar disorder, on no medications. Splenomegaly. No complaints of left upper quadrant pain, flank pain or early satiety but at risk of traumatic injury and splenic rupture. Anemia. No acute indication for red blood cell (RBC) transfusion. Hyperkalemia, resolved secondary to potassium supplementation which has been discontinued. Hepatitis C needs to be addressed as outpatient. Plan/VTE VTE Prophylaxis Ordered?: Yes VS, I&O, 24H, Fishbone Vital Signs/I&O Vital Signs Date Time Temp Pulse Resp B/P (MAP) Pulse Ox O2 Delivery O2 Flow Rate FiO2 06/17/19 14:00 98.1 99 17 132/88 (103) 93 06/14/19 10:21 Room Air 06/13/19 06:52 2.0 I&O- Last 24 Hours up to 6 AM 06/17/19 05:59 Intake Total 1140 ml Output Total 2050 ml Balance -910 ml Laboratory Data 24H LABS Laboratory Tests 2 06/17/19 06:08: Erythrocyte Sedimentation Rate 96H, C-Reactive Protein, Quantitative 8.69H, Vancomycin Level Trough 25.4*H 06/17/19 14:01: Anion Gap 8, Glomerular Filtration Rate 43.4L, Blood Urea Nitrogen 25H, Creatinine 1.91#H, Sodium Level 139, Potassium Level 4.8, Chloride Level 104, Carbon Dioxide Level 27, Calcium Level 8.6 CBC/BMP Laboratory Tests 06/17/19 14:01 Calcium Level 8.6 Microbiology Microbiology 06/11/19 Blood Culture - Final, Complete NO GROWTH AFTER 5 DAYS 06/11/19 Blood Culture - Final, Complete NO GROWTH AFTER 5 DAYS 06/10/19 Blood Culture - Final, Complete NO GROWTH AFTER 5 DAYS 06/11/19 Gram Stain - Final, Complete 06/11/19 Sputum Culture - Final, Complete Staph.aureus Methicillin Resis Yeast Like Organism 06/11/19 Urine Culture - Final, Complete YOLA HDZ MD Jun 17, 2019 16:36
[2019-06-17] MEDS: PANTOPRAZOLE 40MG INJ (PROTONIX) (C9113) IV SCH (17:48)
--- NOTE | 2019-06-17 18:43 | IPN ---
DATE: 06/17/2019 Nicolas is complaining of nausea and decreased appetite. He is only drinking water and Gingerale. He has had no fever or chills and minimal chest pain, mostly with coughing. He has continued hemoptysis. No shortness of breath or abdominal pain. He did not have his PICC line yet. Temperature is 98.1, pulse 99, respirations 17, blood pressure 132/88, oxygen saturation 93% on room air. Heart: Normal S1, S2 with a systolic ejection murmur 2/6 at the left lower sternal border. Lungs: Diminished breath sounds at the bases. Abdomen is soft, nontender. Extremities: No edema. He has tenderness along his left knee with minimal warmth and the dorsal aspect of the foot with pitting edema on the dorsal aspect of the left foot. No edema on the right side. IMAGING STUDY: Foot x-ray done on June 16: No acute bony abnormality. Knee x-ray, again negative x-ray. LABORATORY DATA: White count 6.2, hemoglobin 9.6, hematocrit 28.4, platelets 347, 63% neutrophils, 22% lymphocytes, 8% monocytes, 3% eosinophils. ESR 93. Sodium 139, potassium 4.8, chloride 104, bicarbonate 27, BUN 25, creatinine 1.91, glucose 76, calcium 8.6, CRP 8.69, down from 21.7. Blood cultures on June 10 June 11, no growth after 5 days. Sputum culture: Methicillin-resistant Staphylococcus aureus (MRSA). IMPRESSION: 1. Methicillin-resistant Staphylococcus aureus (MRSA) endocarditis of the tricuspid valve with septic emboli to the lungs, on IV vancomycin currently on 1GM every 24 hours, but he has felt the acute kidney injury, and his dose should be held today. 2. Septic emboli to the lung with hemoptysis. Continue to monitor. 3. Acute kidney injury, most likely a combination of vancomycin toxicity, endocarditis, and ibuprofen use. Please discontinue ibuprofen. Consider IV fluids. Vancomycin dose should be held today. Case has been discussed with pharmacy. 4. Polysubstance abuse. Patient denies using IV drugs for the past 5 years, but he is willing to go to his mother for IV antibiotics through a PICC line. The patient is on Suboxone maintenance. 5. Splenomegaly, probably related to endocarditis. 6. Chronic hepatitis C. This will need to be treated as an outpatient. 7. Left knee and foot pain. If continues, consider obtaining MRI to rule out metastatic complications of MRSA endocarditis, although the patient has normal range of motion. I would hold off on MRI unless symptoms worsen. PLAN: Hold vancomycin today. Repeat random levels. Probably dosing will be 1 gram every 24, but the case has been discussed with Jeffrey Tubbs, pharmacy. Discontinue ibuprofen. Case has been discussed with Dr. Yi. Treatment for 4 weeks. Vancomycin from negative culture. End of therapy would be July 09. MTDD
[2019-06-17] MEDS ORDERED: VANCOMYCIN INTERMITTENT/PULSE DOSING BY CLINICAL PHARMACIST PER DOSING PROTOCOL XX SCH (18:45)
--- NOTE | 2019-06-17 20:27 | PHACANCOPD ---
PHARMACY VANCOMYCIN DOSING Pt Demographics Demographics Patient Age:34 , Weight:76.000 , Gender: male Adjusted Body Weight Events Past 24 Hours Events Past 24 Hours: YES: Change in CrCl (SCR > 0.71 mcg/ml/ 24HRS) Vancomycin Vancomycin indication: MRSA BACTEREMIA, MULTIFOCAL PNA & SEPSIS Vancomycin Target Ranges: 10-20 mcg/ml Vancomycin Load Y/N: Yes Load Dose Date Time Vancomycin Load Dose: 1GM Date: 06/10/19 Time: 11:45AM @ [facility] Vancomycin Dose Date: 06/17/19. Current Vancomycin Dose: [1g IV Q12H LAST DOSE @19:00 06/16/19] ] Intermittent Dosing?: Yes Labs Labs Laboratory Tests Test 06/12/19 18:07 06/13/19 12:10 06/14/19 12:25 06/15/19 05:14 Vancomycin Level Trough 18.4 UG/ML (10.0-20.0) 26.6 UG/ML (10.0-20.0) 13.7 UG/ML (10.0-20.0) Random Vancomycin Level 25.6 UG/ML Test 06/16/19 04:54 06/17/19 06:08 06/17/19 17:49 Vancomycin Level Trough 21.9 UG/ML (10.0-20.0) 25.4 UG/ML (10.0-20.0) Random Vancomycin Level 23.2 UG/ML Laboratory Tests 06/16/19 04:54 Red Blood Count 3.26, Mean Corpuscular Volume 87.1, Mean Corpuscular Hemoglobin 29.4, Mean Corpuscular Hemoglobin Concent 33.8, Red Cell Distribution Width 12.5, Neutrophils (%) (Auto) 63.8, Lymphocytes (%) (Auto) 22.7, Monocytes (%) (Auto) 8.7, Eosinophils (%) (Auto) 3.7, Basophils (%) (Auto) 0.5, Neutrophils # (Auto) 4.0, Lymphocytes # (Auto) 1.4, Monocytes # (Auto) 0.5, Eosinophils # (Auto) 0.2, Basophils # (Auto) 0.0, Calcium Level 7.6 06/17/19 14:01 Calcium Level 8.6 Micro Microbiology 06/11/19 Blood Culture - Final, Complete NO GROWTH AFTER 5 DAYS 06/11/19 Blood Culture - Final, Complete NO GROWTH AFTER 5 DAYS 06/10/19 Blood Culture - Final, Complete NO GROWTH AFTER 5 DAYS 06/11/19 Sputum Culture - Final, Complete Staph. aureus; Oxacillin resistant Creatinine Clearance Date:06/17/19. Creatinine Clearance: [Impending UNSTABLE RF SCR INCREASE = >0.7/24HRS]. Pending Labs RANDOM VANCO IN AM WITH AM LABS 06/18/19 Assessment and Plan Maintaining Current Dose?: No Reason for dose change: Significant event (INCREASE IN SCR EXCEEDING >0.5 mcg/ml in 24HRS) Pharmacist Note Pharmacist Note 06/17/19: Pharm.D NOTE: DUE TO THE INCREASE IN SERUM CREATININE OVER THE PAST 24HRS (1.27 to 1.91 mcg/ml), THE 16:00 DOSE OF VANCO WAS HELD AT Dr. Miguelina PINA'S REQUEST. A RANDOM VANCO LEVEL WAS ORDERED FOR 18:00. THE RESULTING LEVEL = 23.2 mcg/ml. THIS MORNINGS VANCO TROUGH WAS 25.4mcg/ml. WITH A DRUG FREE INTERVAL = 11.67hrs, HIS CALCULATED Jey = [id number]. WE WILL CHANGE HIS VANCO DOSING TO 1GM IV INTERMITTENTLY FOR NOW AND DRAW A REPEAT VANCO RANDOM LEVEL IN THE MORNING 06/18 WITH AM LABS. JENNY RAI PHARMACY Jun 17, 2019 20:27
[2019-06-17 22:00] VITALS: BP 129/82
[2019-06-17] MEDS: ONDANSETRON 4 MG ORAL DISINTEGRATING TAB (Q0162 PER 1MG) PO SCH (22:33)
[2019-06-18 06:00] VITALS: BP 129/82
[2019-06-18] MEDS: SODIUM CHLORIDE 0.9% INJ 10 ML SYR IV SCH ×3 (06:29→17:05)
[2019-06-18 06:48] LABS: CALCIUM LEVEL 8.5 MG/DL (8.5-10.1); CREATININE FOR GFR 2.21 MG/DL (0.70-1.30); GLOMERULAR FILTRATION RATE 36.7 (>60); POTASSIUM SERUM 4.8 MEQ/L (3.5-5.1); VANCOMYCIN RANDOM 16.1 UG/ML
[2019-06-18] MEDS: BUPRENORPHINE 8 MG SL SCH ×3 (09:00→20:23)
[2019-06-18] MEDS: NICOTINE 14 MG/24 HR TRANSDERMAL TD SCH (09:00)
--- NOTE | 2019-06-18 09:41 | IPNPDOC ---
Subjective Date Seen The patient was seen on 06/18/19. Subjective Chief Complaint/HPI continues to have persistent nausea, poor appetite and poor oral intake, no fever or chills, No sob or chest pain. No abdominal pain or diarrhea. PICC line today. Objective Physical Examination General Exam: Positive: Alert, Cooperative, No Acute Distress Eye Exam: Positive: PERRLA, Conjunctiva & lids normal, EOMI; Negative: Sclera icteric ENT Exam: Positive: Atraumatic, Mucous membr. moist/pink, Pharynx Normal Neck Exam: Positive: Supple; Negative: JVD, thyromegaly Chest Exam: Positive: Clear to auscultation, Normal air movement Heart Exam: Positive: Tachycardic, Regular Rhythm, Normal S1, Normal S2; Negative: Gallops, Murmurs, Rubs Abdomen Exam: Positive: Normal bowel sounds, Soft; Negative: Tenderness, Hepatospenomegaly Extremity Exam: Positive: Normal pulses; Negative: Clubbing, Cyanosis, Edema Skin Exam: Positive: Nl turgor and temperature; Negative: Rash, Breakdown Assessment /Plan Assessment This is a 34-year-old male with a past medical history significant for IV drug use with heroin and cocaine now on Suboxone, hepatitis C, neg HIV, He has been clean for the past five years and follows with a physician in [facility] for his buprenorphine. He presented to the emergency room with three weeks ago with generalized malaise, subjective fevers, decrease in appetite. Patient says he had an injury to his left wrist at work, treated at [place] with Superglue and healed without antibiotics. A week later, he was having subjective fevers. At [facility], he was found to have bilateral infiltrates on chest x-ray with complaints of shortness of breath, treated and admitted with ceftriaxone and azithromycin for pneumonia. Blood culture grew out methicillin- resistant Staphylococcus aureus (MRSA). CT chest showed no pulmonary embolism. E chocardiogram showed no vegetation. Patient became hypotensive status post IV fluid boluses, central line placement right internal jugular, and therefore patient was subsequently transferred to [facility] for further management. New HILDA worsening. creatinine at 2.2 vanco trough in range today .dose to be adjusted by pharmacy. ibuprofen stopped. Will give a fluid bolus. 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 Transesophageal echocardiogram ([facility]) on 06/11/2019 showed moderate tricuspid regurgitation secondary to vegetations in tricuspid valve. Vancomycin 1.5 gm q24 hours for 4 to 6 weeks. Needs ID near his Mother's house to follow up with as he will be staying with his mom till completion of treatment. Bilateral septic emboli due to MRSA endocarditis. Patient continues to have episodes of hemoptysis as well as dyspnea on exertion. He does not need heparinization or Lovenox. He is currently managed with IV vancomycin to complete four more weeks as outpatient. History of polysubstance abuse with prescription medications, oxycodone, Percocet, fentanyl, morphine, heroin and cocaine use. He admits he is still using marijuana recreationally for his chronic back pain. He is managed by a [facility] physician who does video conferencing once a month and gives him buprenorphine. Tobacco abuse. Cessation counseling has been provided. He is on nicotine replacement therapy. Positive urine drug screen for marijuana. Admits to continued use recreationally. History of bipolar disorder, on no medications. Splenomegaly. No complaints of left upper quadrant pain, flank pain or early satiety but at risk of traumatic injury and splenic rupture. Anemia. No acute indication for red blood cell (RBC) transfusion. Hyperkalemia, resolved secondary to potassium supplementation which has been discontinued. Hepatitis C needs to be addressed as outpatient. Plan/VTE VTE Prophylaxis Ordered?: Yes VS, I&O, 24H, Fishbone Vital Signs/I&O Vital Signs Date Time Temp Pulse Resp B/P (MAP) Pulse Ox O2 Delivery O2 Flow Rate FiO2 06/18/19 06:00 98.4 86 18 129/82 (98) 92 06/14/19 10:21 Room Air 06/13/19 06:52 2.0 I&O- Last 24 Hours up to 6 AM 06/18/19 06:00 Intake Total 1450 ml Output Total 600 ml Balance 850 ml Laboratory Data 24H LABS Laboratory Tests 2 06/17/19 14:01: Anion Gap 8, Glomerular Filtration Rate 43.4L, Blood Urea Nitrogen 25H, Creatinine 1.91#H, Sodium Level 139, Potassium Level 4.8, Chloride Level 104, Carbon Dioxide Level 27, Calcium Level 8.6 06/17/19 17:49: Random Vancomycin Level 23.2 06/18/19 06:15: Anion Gap 8, Glomerular Filtration Rate 36.7L, Blood Urea Nitrogen 28H, Creatinine 2.21H, Sodium Level 136, Potassium Level 4.8, Chloride Level 100, Carbon Dioxide Level 28, Calcium Level 8.5, Random Vancomycin Level 16.1 CBC/BMP Laboratory Tests 06/17/19 14:01 Calcium Level 8.6 06/18/19 06:15 Calcium Level 8.5 Microbiology Microbiology 06/11/19 Blood Culture - Final, Complete NO GROWTH AFTER 5 DAYS 06/11/19 Blood Culture - Final, Complete NO GROWTH AFTER 5 DAYS 06/10/19 Blood Culture - Final, Complete NO GROWTH AFTER 5 DAYS 06/11/19 Gram Stain - Final, Complete 06/11/19 Sputum Culture - Final, Complete Staph.aureus Methicillin Resis Yeast Like Organism 06/11/19 Urine Culture - Final, Complete YOLA HDZ MD Jun 18, 2019 09:41
[2019-06-18] MEDS ORDERED: SODIUM CHLORIDE 0.9% 1000ML IV ONE (09:45)
[2019-06-18] MEDS ORDERED: LIDOCAINE 1% MDV 20ML VIAL As Ordered ONE (10:37)
[2019-06-18] MEDS ORDERED: VANCOMYCIN HCL 1,000 MG, VIAL MATE ADAPTER 1 EACH in D5W 250 ML IV ONE (11:00)
[2019-06-18] MEDS ORDERED: SODIUM CHLORIDE 0.9% INJ 10 ML SYR IV PRN (12:00)
[2019-06-18] MEDS: traMADol 50 MG TAB PO SCH ×3 (12:43→20:24)
[2019-06-18] MEDS: ONDANSETRON 4 MG ORAL DISINTEGRATING TAB (Q0162 PER 1MG) PO SCH ×2 (12:43→20:23)
--- NOTE | 2019-06-18 16:51 | REP ---
PICC line insertion under ultrasound guidance. The procedure was performed by RENE Stafford, under the direct supervision of Dr. Rodríguez. The risks and benefits of the procedure were explained to the patient and informed consent was obtained the verbally and written. Directly prior to the start of the procedure, a formal timeout was completed in the procedure room. The right medial brachial vein was localized using ultrasound guidance. The skin was prepped and draped in the sterile fashion. 2 ml 1% lidocaine was used as a local anesthetic. Using ultrasound guidance the right medial brachial vein was cannulated and a 0.018 guidewire was inserted and advanced to the SVC using fluoroscopic guidance. The needle was removed and a 4.5 Spanish dilator and peel-away sheath was inserted over the guidewire. A 4.5 Spanish single lumen catheter was cut to the length of 35 cm. The dilator was removed and the catheter was inserted over the guide wire with the tip ending in the SVC. The peel-away sheath was removed and the catheter was flushed with heparinized saline as per hospital protocol. The catheter was affixed to the skin and a sterile dressing was applied. The patient tolerated the procedure well and there were no immediate complications. 0.2 minutes of fluoroscopy time was utilized for this procedure. Some fluoroscopic images are performed with last image hold technology. These images require no additional radiation. Reviewed by RENE Corona 06/18/2019 01:33 P Electronically Signed by Mian Rodríguez MD 06/18/2019 04:41 P
[2019-06-18] MEDS: PANTOPRAZOLE 40MG INJ (PROTONIX) (C9113) IV SCH (17:05)
[2019-06-18 22:22] VITALS: BP 128/79
[2019-06-18] MEDS ORDERED: zolPIDEM TARTRATE 5 MG TAB PO ONE (23:45)
[2019-06-19 06:44] VITALS: BP 115/70
[2019-06-19] MEDS: SODIUM CHLORIDE 0.9% INJ 10 ML SYR IV SCH ×2 (06:46→18:28)
[2019-06-19] MEDS: ONDANSETRON 4 MG ORAL DISINTEGRATING TAB (Q0162 PER 1MG) PO SCH ×2 (08:02→20:43)
[2019-06-19] MEDS: traMADol 50 MG TAB PO SCH ×3 (08:02→20:44)
[2019-06-19] MEDS: NICOTINE 14 MG/24 HR TRANSDERMAL TD SCH (08:03)
[2019-06-19] MEDS: BUPRENORPHINE 8 MG SL SCH ×3 (08:04→20:45)
[2019-06-19 09:00] LABS: CREATININE FOR GFR 2.21 MG/DL (0.70-1.30); GLOMERULAR FILTRATION RATE 36.7 (>60); POTASSIUM SERUM 4.6 MEQ/L (3.5-5.1)
[2019-06-19 09:01] LABS: CALCIUM LEVEL 8.4 MG/DL (8.5-10.1); VANCOMYCIN RANDOM 12.2 UG/ML
[2019-06-19] MEDS ORDERED: VANCOMYCIN HCL 1,000 MG, VIAL MATE ADAPTER 1 EACH in D5W 250 ML IV SCH (11:00)
--- NOTE | 2019-06-19 13:53 | IPNPDOC ---
Subjective Date Seen The patient was seen on 06/19/19. Subjective Chief Complaint/HPI No new complaints today. Continues to have exertional SOB , cough, continues to have nausea and poor appetite. No fever or chills. Objective Physical Examination General Exam: Positive: Alert, Cooperative, No Acute Distress Eye Exam: Positive: PERRLA, Conjunctiva & lids normal, EOMI; Negative: Sclera icteric ENT Exam: Positive: Atraumatic, Mucous membr. 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 for his buprenorphine. He presented to the emergency room with three weeks ago with generalized malaise, subjective fevers, decrease in appetite. Patient says he had an injury to his left wrist at work, treated at [place] with Superglue and healed without antibiotics. A week later, he was having subjective fevers. At [facility], he was found to have bilateral infiltrates on chest x-ray with complaints of shortness of breath, treated and admitted with ceftriaxone and azithromycin for pneumonia. Blood culture grew out methicillin- resistant Staphylococcus aureus (MRSA). CT chest showed no pulmonary embolism. Echocardiogram showed no vegetation. Patient became hypotensive status post IV fluid boluses, central line placement right internal jugular, and therefore patient was subsequently transferred to [facility] for further management. New HILDA creatinine at 2.2 vanco trough in range today .dose to be adjusted by pharmacy. ibuprofen stopped. continue to monitor creatinine. 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 Transesophageal echocardiogram ([facility]) on 06/11/2019 showed moderate tricuspid regurgitation secondary to vegetations in tricuspid valve. Vancomycin 1.5 gm q24 hours for 4 to 6 weeks. Needs ID near his Mother's house to follow up with as he will be staying with his mom till completion of treatment. Bilateral septic emboli due to MRSA endocarditis. will need 4 to 6 weeks of vancomycin will follow up with ID at [place]. History of polysubstance abuse with prescription medications, oxycodone, Percocet, fentanyl, morphine, heroin and cocaine use. He admits he is still using marijuana recreationally for his chronic back pain. He is managed by a [facility] physician who does video conferencing once a month and gives him buprenorphine. Tobacco abuse. Cessation counseling has been provided. He is on nicotine replacement therapy. Positive urine drug screen for marijuana. Admits to continued use recreationally. History of bipolar disorder, on no medications. Splenomegaly. No complaints of left upper quadrant pain, flank pain or early satiety but at risk of traumatic injury and splenic rupture. Anemia. No acute indication for red blood cell (RBC) transfusion. Hyperkalemia, resolved secondary to potassium supplementation which has been discontinued. Hepatitis C needs to be addressed as outpatient. Plan/VTE VTE Prophylaxis Ordered?: Yes VS, I&O, 24H, Fishbone Vital Signs/I&O Vital Signs Date Time Temp Pulse Resp B/P (MAP) Pulse Ox O2 Delivery O2 Flow Rate FiO2 06/19/19 08:02 18 06/19/19 06:44 96.0 74 115/70 (85) 96 06/14/19 10:21 Room Air 06/13/19 06:52 2.0 I&O- Last 24 Hours up to 6 AM 06/19/19 06:00 Intake Total 780 ml Output Total 500 ml Balance 280 ml Laboratory Data 24H LABS Laboratory Tests 2 06/19/19 08:09: Anion Gap 7L, Glomerular Filtration Rate 36.7L, Blood Urea Nitrogen 32H, Creatinine 2.21H, Sodium Level 135L, Potassium Level 4.6, Chloride Level 100, Carbon Dioxide Level 28, Calcium Level 8.4L, Random Vancomycin Level 12.2 CBC/BMP Laboratory Tests 06/19/19 08:09 Calcium Level 8.4 L Microbiology Microbiology 06/11/19 Blood Culture - Final, Complete NO GROWTH AFTER 5 DAYS 06/11/19 Blood Culture - Final, Complete NO GROWTH AFTER 5 DAYS 06/10/19 Blood Culture - Final, Complete NO GROWTH AFTER 5 DAYS 06/11/19 Gram Stain - Final, Complete 06/11/19 Sputum Culture - Final, Complete Staph.aureus Methicillin Resis Yeast Like Organism 06/11/19 Urine Culture - Final, Complete YOLA HDZ MD Jun 19, 2019 13:53
[2019-06-19 14:00] VITALS: BP 122/76
--- NOTE | 2019-06-19 15:14 | PHACANCOPD ---
PHARMACY VANCOMYCIN DOSING Pt Demographics Demographics Patient Age:34 , Weight:76.000 , Gender: male Adjusted Body Weight Vancomycin Vancomycin indication: MRSA BACTEREMIA, MULTIFOCAL PNA & SEPSIS Vancomycin Target Ranges: 10-20 mcg/ml Vancomycin Load Y/N: Yes Load Dose Date Time Vancomycin Load Dose: 1GM Date: 06/10/19 Time: 11:45AM @ [facility] Vancomycin Dose Date: 06/19/19. Current Vancomycin Dose: [1gm iv q24h@11] Date: 06/17/19. Current Vancomycin Dose: [1g IV Q12H LAST DOSE @19:00 06/16/19] ] Intermittent Dosing?: Yes Labs Labs Vital Signs Label Value Date Time Patient Temperature 98.6 degrees F 06/18/19 2222 Temperature Source Temporal 06/18/19 2222 Patient Temperature 96.0 degrees F 06/19/19 0644 Temperature Source Temporal 06/19/19 0644 Item Value Date Time White Blood Count 6.2 10^3/uL 06/15/19 0514 White Blood Count 6.2 10^3/uL 06/16/19 0454 Erythrocyte Sedimentation Rate 96 mm/hr H 06/17/19 0608 Creatinine 1.27 MG/DL 06/16/19 0454 Creatinine 1.91 MG/DL H # 06/17/19 1401 Creatinine 2.21 MG/DL H 06/18/19 0615 Creatinine 2.21 MG/DL H 06/19/19 0809 C-Reactive Protein, Quantitative 8.69 MG/DL H 06/17/19 0608 Micro Microbiology 06/11/19 Blood Culture - Final, Complete NO GROWTH AFTER 5 DAYS 06/11/19 Blood Culture - Final, Complete NO GROWTH AFTER 5 DAYS 06/10/19 Blood Culture - Final, Complete NO GROWTH AFTER 5 DAYS 06/11/19 Gram Stain - Final, Complete 06/11/19 Sputum Culture - Final, Complete Staph.aureus Methicillin Resis Yeast Like Organism 06/11/19 Urine Culture - Final, Complete Creatinine Clearance Date:06/17/19. Creatinine Clearance: [Impending UNSTABLE RF SCR INCREASE = >0.7/24HRS]. Pending Labs RANDOM VANCO IN AM WITH AM LABS 06/18/19 Assessment and Plan Maintaining Current Dose?: Yes Reason for dose change: No Dose Change Pharmacist Note Pharmacist Note 06/19: Patient's trough resulted today at 12.2. His kidney function remains elevated at 2.2 (baseline 0.58). He was continued on 1000mg of Vancomycin q24h for now. He was due to be discharged today to home health care, however that is not happening. We will obtain another trough tomorrow morning to see if his kidney function is improving and if his dose needs to be adjusted. We will continue to monitor and make adjustments as necessary. 06/17/19: Pharm.D NOTE: DUE TO THE INCREASE IN SERUM CREATININE OVER THE PAST 24HRS (1.27 to 1.91 mcg/ml), THE 16:00 DOSE OF VANCO WAS HELD AT Dr. Miguelina PINA'S REQUEST. A RANDOM VANCO LEVEL WAS ORDERED FOR 18:00. THE RESULTING LEVEL = 23.2 mcg/ml. THIS MORNINGS VANCO TROUGH WAS 25.4mcg/ml. WITH A DRUG FREE INTERVAL = 11.67hrs, HIS CALCULATED Jey = [id number]. WE WILL CHANGE HIS VANCO DOSING TO 1GM IV INTERMITTENTLY FOR NOW AND DRAW A REPEAT VANCO RANDOM LEVEL IN THE MORNING 06/18 WITH AM LABS. SARAH ASHRAF PHARMACY Jun 19, 2019 15:14
[2019-06-19] MEDS: PANTOPRAZOLE 40MG INJ (PROTONIX) (C9113) IV SCH (18:27)
[2019-06-19 22:16] VITALS: BP 135/79
[2019-06-20] MEDS: SODIUM CHLORIDE 0.9% INJ 10 ML SYR IV SCH ×2 (06:29→17:33)
[2019-06-20 06:46] LABS: BASO # 0.1 10^3/uL (0.0-0.2); BASO % 0.8 % (0.0-1.0); EOS # 0.2 10^3/uL (0.0-0.50); EOS % 2.8 % (0.0-3.0); HEMATOCRIT 28.6 % (42.0-52.0); HEMOGLOBIN 9.9 g/dl (13.5-17.5); LYMPH # 1.6 10^3/uL (1.5-4.5); LYMPH % 20.7 % (24.0-44.0); MEAN CORPUSCULAR HEMOGLOBIN 30.4 pg (27.0-33.0); MEAN CORPUSCULAR HGB CONC 34.6 g/dl (32.0-36.5); MEAN CORPUSCULAR VOLUME 87.7 fl (80.0-96.0); MONO # 0.6 10^3/uL (0.0-0.8); MONO % 7.3 % (0.0-5.0); NEUTROPHILS # 5.1 10^3/uL (1.8-7.7); PLATELET COUNT, AUTOMATED 432 10^3/uL (150-450); RED BLOOD COUNT 3.26 10^6/uL (4.30-6.10); WHITE BLOOD COUNT 7.5 10^3/uL (4.0-10.0)
[2019-06-20 06:49] VITALS: BP 117/72
[2019-06-20 07:07] LABS: CALCIUM LEVEL 8.4 MG/DL (8.5-10.1); CREATININE FOR GFR 2.22 MG/DL (0.70-1.30); GLOMERULAR FILTRATION RATE 36.5 (>60); POTASSIUM SERUM 4.4 MEQ/L (3.5-5.1)
[2019-06-20] MEDS ORDERED: SODIUM CHLORIDE 0.9% 1000ML IV ONE (07:30)
[2019-06-20] MEDS: traMADol 50 MG TAB PO SCH ×3 (08:20→20:50)
[2019-06-20] MEDS: ONDANSETRON 4 MG ORAL DISINTEGRATING TAB (Q0162 PER 1MG) PO SCH ×2 (08:20→20:50)
[2019-06-20] MEDS: BUPRENORPHINE 8 MG SL SCH ×3 (08:20→20:49)
[2019-06-20] MEDS: NICOTINE 14 MG/24 HR TRANSDERMAL TD SCH (08:22)
[2019-06-20] MEDS: VANCOMYCIN HCL 1,000 MG, VIAL MATE ADAPTER 1 EACH in D5W 250 ML IV SCH (10:28)
--- NOTE | 2019-06-20 11:09 | IPNPDOC ---
Subjective Date Seen The patient was seen on 06/20/19. Subjective Chief Complaint/HPI Feeling much better today, nausea is better, able to eat more. No fever or chills, still has some cough and phlegm production but no more hemoptysis. He insists that he has to go on Sunday otherwise he wont be able to go for a week as his Mom will not be able to come and pick him up. No chest pain or sob, no abdominal pain or diarrhea. Objective Physical Examination General Exam: Positive: Alert, Cooperative, No Acute Distress Eye Exam: Positive: PERRLA, Conjunctiva & lids normal, EOMI; Negative: Sclera icteric ENT Exam: Positive: Atraumatic, Mucous membr. moist/pink, Pharynx Normal Neck Exam: Positive: Supple; Negative: JVD, thyromegaly Chest Exam: Positive: Clear to auscultation, Normal air movement Heart Exam: Positive: Tachycardic, Regular Rhythm, Normal S1, Normal S2; Negative: Gallops, Murmurs, Rubs Abdomen Exam: Positive: Normal bowel sounds, Soft; Negative: Tenderness, Hepatospenomegaly Extremity Exam: Positive: Normal pulses; Negative: Clubbing, Cyanosis, Edema Skin Exam: Positive: Nl turgor and temperature; Negative: Rash, Breakdown Assessment /Plan Assessment This is a 34-year-old male with a past medical history significant for IV drug use with heroin and cocaine now on Suboxone, hepatitis C, neg HIV, He has been clean for the past five years and follows with a physician in [facility] for his buprenorphine. He presented to the emergency room with three weeks ago with generalized malaise, subjective fevers, decrease in appetite. Patient says he had an injury to his left wrist at work, treated at [place] with Superglue and healed without antibiotics. A week later, he was having subjective fevers. At [facility], he was found to have bilateral infiltrates on chest x-ray with complaints of shortness of breath, treated and admitted with ceftriaxone and azithromycin for pneumonia. Blood culture grew out methicillin-resistant Staphylococcus aureus (MRSA). CT chest showed no pulmonary embolism. Echocardiogram showed no vegetation. Patient became hypotensive status post IV fluid boluses, central line placement right internal jugular, and therefore patient was subsequently transferred to [facility] for further management. Nonoliguric HILDA creatinine at 2.2 unchanged in dominik past 3 days probably due to vancomycin and ibuprofen. vanco trough in range today .dose to be adjusted by pharmacy. continue to monitor creatinine. 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 Transesophageal echocardiogram ([facility]) on 06/11/2019 showed moderate tricuspid regurgitation secondary to vegetations in tricuspid valve. Vancomycin 1.5 gm q24 hours for 4 to 6 weeks. Needs ID near his Mother's house to follow up with as he will be staying with his mom till completion of treatment. Bilateral septic emboli due to MRSA endocarditis. will need 4 to 6 weeks of vancomycin will follow up with ID at [place]. History of polysubstance abuse with prescription medications, oxycodone, Percocet, fentanyl, morphine, heroin and cocaine use. He admits he is still using marijuana recreationally for his chronic back pain. He is managed by a [facility] physician who does video conferencing once a month and gives him buprenorphine. Tobacco abuse. Cessation counseling has been provided. He is on nicotine replacement therapy. Positive urine drug screen for marijuana. Admits to continued use recreationally. History of bipolar disorder, on no medications. Splenomegaly. No complaints of left upper quadrant pain, flank pain or early satiety but at risk of traumatic injury and splenic rupture. Anemia. No acute indication for red blood cell (RBC) transfusion. Hyperkalemia, resolved secondary to potassium supplementation which has been discontinued. Hepatitis C needs to be addressed as outpatient. Plan/VTE VTE Prophylaxis Ordered?: Yes VS, I&O, 24H, Fishbone Vital Signs/I&O Vital Signs Date Time Temp Pulse Resp B/P (MAP) Pulse Ox O2 Delivery O2 Flow Rate FiO2 06/20/19 08:20 20 06/20/19 06:49 96.3 70 117/72 (87) 93 06/14/19 10:21 Room Air I&O- Last 24 Hours up to 6 AM 06/20/19 05:59 Intake Total 2400 ml Output Total 1000 ml Balance 1400 ml Laboratory Data 24H LABS Laboratory Tests 2 06/20/19 06:33: Immature Granulocyte % (Auto) 0.4, White Blood Count 7.5, Red Blood Count 3.26L, Hemoglobin 9.9L, Hematocrit 28.6L, Mean Corpuscular Volume 87.7, Mean Corpusc ular Hemoglobin 30.4, Mean Corpuscular Hemoglobin Concent 34.6, Red Cell Distribution Width 12.6, Platelet Count 432, Neutrophils (%) (Auto) 68.0H, Lymphocytes (%) (Auto) 20.7L, Monocytes (%) (Auto) 7.3H, Eosinophils (%) (Auto) 2.8, Basophils (%) (Auto) 0.8, Neutrophils # (Auto) 5.1, Lymphocytes # (Auto) 1.6, Monocytes # (Auto) 0.6, Eosinophils # (Auto) 0.2, Basophils # (Auto) 0.1, Nucleated Red Blood Cells % (auto) 0.0, Anion Gap 5L, Glomerular Filtration Rate 36.5L, Blood Urea Nitrogen 34H, Creatinine 2.22H, Sodium Level 134L, Potassium Level 4.4, Chloride Level 99, Carbon Dioxide Level 30, Calcium Level 8.4L 06/20/19 08:14: Vancomycin Level Trough 16.3 CBC/BMP Laboratory Tests 06/20/19 06:33 Red Blood Count 3.26 L, Mean Corpuscular Volume 87.7, Mean Corpuscular Hemoglobin 30.4, Mean Corpuscular Hemoglobin Concent 34.6, Red Cell Distribution Width 12.6, Neutrophils (%) (Auto) 68.0 H, Lymphocytes (%) (Auto) 20.7 L, Monocytes (%) (Auto) 7.3 H, Eosinophils (%) (Auto) 2.8, Basophils (%) (Auto) 0.8, Neutrophils # (Auto) 5.1, Lymphocytes # (Auto) 1.6, Monocytes # (Auto) 0.6, Eosinophils # (Auto) 0.2, Basophils # (Auto) 0.1, Calcium Level 8.4 L Microbiology Microbiology 06/11/19 Blood Culture - Final, Complete NO GROWTH AFTER 5 DAYS 06/11/19 Blood Culture - Final, Complete NO GROWTH AFTER 5 DAYS 06/10/19 Blood Culture - Final, Complete NO GROWTH AFTER 5 DAYS 06/11/19 Gram Stain - Final, Complete 06/11/19 Sputum Culture - Final, Complete Staph.aureus Methicillin Resis Yeast Like Organism 06/11/19 Urine Culture - Final, Complete YOLA HDZ MD Jun 20, 2019 11:09
[2019-06-20 14:00] VITALS: BP 132/79
[2019-06-20] MEDS: PANTOPRAZOLE 40MG INJ (PROTONIX) (C9113) IV SCH (17:34)
[2019-06-20 18:15] LABS: CALCIUM LEVEL 8.4 MG/DL (8.5-10.1); CREATININE FOR GFR 2.13 MG/DL (0.70-1.30); GLOMERULAR FILTRATION RATE 38.3 (>60); POTASSIUM SERUM 4.1 MEQ/L (3.5-5.1)
--- NOTE | 2019-06-20 20:12 | IPN ---
DATE: 06/19/2019 The patient was seen after dinner. He states he is feeling the best he felt in a long time. He is afebrile. He was anxious to go home today, but his discharge was cancelled due to acute kidney injury and persistent elevated creatinine. He complains of left foot pain, especially when he stands on his foot and knee pain, but they are somewhat improving. Temperature is 98, pulse 89, respirations 20, blood pressure (BP) 135/79, oxygen saturating 97% on room air. He still has some hemoptysis but it is much. LABORATORY: Sodium 135, potassium 4.6, chloride 100, bicarbonate 28, BUN 32, creatinine 2.21, glucose 88, calcium 8.4, erythrocyte sedimentation rate (ESR) 96 PHYSICAL EXAMINATION: Temperature is 98, pulse 89, respirations 20, blood pressure 135/79, oxygen saturation 97% on room air. Heart: Normal S1-S2 with systolic ejection murmur 2/6 over the left lower sternal border. Lungs: Expiratory wheezes bilaterally. Abdomen is soft, nontender, hepatosplenomegaly. Extremities: Trace edema on the left side with tenderness at the base of the fourth metatarsal with slight erythema at the base of the toe, which has decreased in size and discoloration is account services associate pink. Knee is tender along the left lateral border above the patella, but no effusion is noted. Normal range of motion. IMPRESSION: 1. Methicillin-resistant Staphylococcus aureus (MRSA), tricuspid valve endocarditis on IV vancomycin, improving. 2. Bilateral septic emboli to the lungs from endocarditis on IV vancomycin. 3. Left foot pain and knee pain. I suspect he might have had a cellulitis of the left foot versus acute osteomyelitis. X-ray was negative, but since the treatment would not be different and his clinical symptoms on his foot have improved, would continue with same treatment with obtaining MRI. Clinically, he is doing better. 4. Polysubstance abuse, doing well on Suboxone. 5. Acute kidney injury. Creatinine remains elevated at 2.1 and therefore his discharge is being held at 2.21. PLAN: Continue IV vancomycin every 24 hours, monitor creatinine, vancomycin trough very closely. The patient will be discharged to the care of his mother and he will follow up with Dr. Itz Alves, infectious disease in [place] for continued care. End of treatment, if 4 weeks is deemed appropriate, would be July 09.
[2019-06-20 22:00] VITALS: BP 133/78
[2019-06-21 06:00] VITALS: BP 130/77
[2019-06-21] MEDS: SODIUM CHLORIDE 0.9% INJ 10 ML SYR IV SCH ×2 (06:22→18:40)
[2019-06-21 06:37] LABS: BASO # 0.1 10^3/uL (0.0-0.2); BASO % 0.9 % (0.0-1.0); EOS # 0.2 10^3/uL (0.0-0.50); EOS % 3.2 % (0.0-3.0); HEMATOCRIT 27.8 % (42.0-52.0); HEMOGLOBIN 9.5 g/dl (13.5-17.5); LYMPH # 1.6 10^3/uL (1.5-4.5); LYMPH % 23.3 % (24.0-44.0); MEAN CORPUSCULAR HEMOGLOBIN 29.9 pg (27.0-33.0); MEAN CORPUSCULAR HGB CONC 34.2 g/dl (32.0-36.5); MEAN CORPUSCULAR VOLUME 87.4 fl (80.0-96.0); MONO # 0.6 10^3/uL (0.0-0.8); MONO % 8.6 % (0.0-5.0); NEUTROPHILS # 4.4 10^3/uL (1.8-7.7); NEUTROPHILS % 63.7 % (36.0-66.0); PLATELET COUNT, AUTOMATED 460 10^3/uL (150-450); RED BLOOD COUNT 3.18 10^6/uL (4.30-6.10); WHITE BLOOD COUNT 6.9 10^3/uL (4.0-10.0)
[2019-06-21 08:08] LABS: CALCIUM LEVEL 8.3 MG/DL (8.5-10.1); CREATININE FOR GFR 2.13 MG/DL (0.70-1.30); GLOMERULAR FILTRATION RATE 38.3 (>60); POTASSIUM SERUM 4.4 MEQ/L (3.5-5.1)
[2019-06-21] MEDS: NICOTINE 14 MG/24 HR TRANSDERMAL TD SCH (09:00)
[2019-06-21] MEDS: BUPRENORPHINE 8 MG SL SCH ×4 (09:00→21:14)
--- NOTE | 2019-06-21 09:22 | PHACANCOPD ---
PHARMACY VANCOMYCIN DOSING Pt Demographics Demographics Patient Age:34 , Weight:76.000 , Gender: male Adjusted Body Weight Events Past 24 Hours Events Past 24 Hours: NO: Dialysis, Diuretic Therapy, Change in CrCl, Fever, Elevation in WBC, Pending Diagnostics, Pending Procedures, Other Vancomycin Vancomycin indication: MRSA BACTEREMIA, MULTIFOCAL PNA & SEPSIS Vancomycin Target Ranges: 10-20 mcg/ml Vancomycin Load Y/N: Yes Load Dose Date Time Vancomycin Load Dose: 1GM Date: 06/10/19 Time: 11:45AM @ [facility] Vancomycin Dose Date: 06/19/19. Current Vancomycin Dose: [1gm iv q24h@11] Date: 06/17/19. Current Vancomycin Dose: [1g IV Q12H LAST DOSE @19:00 06/16/19] ] Intermittent Dosing?: Yes Labs Labs Vital Signs Label Value Date Time Patient Temperature 97.4 degrees F 06/21/19 0600 Temperature Source Oral 06/21/19 0600 Patient Temperature 98.8 degrees F 06/20/19 2200 Temperature Source Oral 06/20/19 2200 Patient Temperature 98.1 degrees F 06/20/19 1400 Temperature Source Oral 06/20/19 1400 Item Value Date Time White Blood Count 6.9 10^3/uL 06/21/19 0625 White Blood Count 7.5 10^3/uL 06/20/19 0633 White Blood Count 6.2 10^3/uL 06/16/19 0454 Creatinine 2.13 MG/DL H 06/21/19 0625 Creatinine 2.13 MG/DL H 06/20/19 1730 Creatinine 2.22 MG/DL H 06/20/19 0633 Vancomycin Level Trough 17.7 UG/ML 06/21/19 0825 Vancomycin Level Trough 16.3 UG/ML 06/20/19 0814 Micro Microbiology 06/11/19 Blood Culture - Final, Complete NO GROWTH AFTER 5 DAYS 06/11/19 Blood Culture - Final, Complete NO GROWTH AFTER 5 DAYS 06/11/19 Gram Stain - Final, Complete 06/11/19 Sputum Culture - Final, Complete Staph.aureus Methicillin Resis Yeast Like Organism 06/11/19 Urine Culture - Final, Complete Creatinine Clearance Date:06/17/19. Creatinine Clearance: [Impending UNSTABLE RF SCR INCREASE = >0.7/24HRS]. Pending Labs RANDOM VANCO IN AM WITH AM LABS 06/18/19 Assessment and Plan Maintaining Current Dose?: Yes Reason for dose change: No Dose Change Pharmacist Note Pharmacist Note 06/21/19: Trough this AM resulted back at 17.7mcg/ml. This is within our goal range. We will continue the pt's current dose of Vanco 1G IV Q24H@09. We will continue to monitor and adjust dose as needed. 06/19: Patient's trough resulted today at 12.2. His kidney function remains elevated at 2.2 (baseline 0.58). He was continued on 1000mg of Vancomycin q24h for now. He was due to be discharged today to home health care, however that is not happening. We will obtain another trough tomorrow morning to see if his kidney function is improving and if his dose needs to be adjusted. We will continue to monitor and make adjustments as necessary. 06/17/19: Pharm.D NOTE: DUE TO THE INCREASE IN SERUM CREATININE OVER THE PAST 24HRS (1.27 to 1.91 mcg/ml), THE 16:00 DOSE OF VANCO WAS HELD AT Dr. Miguelina PINA'S REQUEST. A RANDOM VANCO LEVEL WAS ORDERED FOR 18:00. THE RESULTING LEVEL = 23.2 mcg/ml. THIS MORNINGS VANCO TROUGH WAS 25.4mcg/ml. WITH A DRUG FREE INTERVAL = 11.67hrs, HIS CALCULATED Jey = [id number]. WE WILL CHANGE HIS VANCO DOSING TO 1GM IV INTERMITTENTLY FOR NOW AND DRAW A REPEAT VANCO RANDOM LEVEL IN THE MORNING 06/18 WITH AM LABS. DASHAWN CHADWICK PHARMACY Jun 21, 2019 09:22
[2019-06-21] MEDS: ONDANSETRON 4 MG ORAL DISINTEGRATING TAB (Q0162 PER 1MG) PO SCH ×2 (09:31→21:13)
[2019-06-21] MEDS: traMADol 50 MG TAB PO SCH ×3 (09:32→21:14)
[2019-06-21] MEDS: VANCOMYCIN HCL 1,000 MG, VIAL MATE ADAPTER 1 EACH in D5W 250 ML IV SCH (09:32)
[2019-06-21 14:00] VITALS: BP 131/81
--- NOTE | 2019-06-21 14:59 | IPNPDOC ---
Subjective Date Seen The patient was seen on 06/21/19. Subjective Chief Complaint/HPI No new complaints today. overall feeling much better, able to eat more, good urine output, no dysuria or hematuria. No fever or chills, some cough still there but improving. No hemoptysis. Objective Physical Examination General Exam: Positive: Alert, Cooperative, No Acute Distress Eye Exam: Positive: PERRLA, Conjunctiva & lids normal, EOMI; Negative: Sclera icteric ENT Exam: Positive: Atraumatic, Mucous membr. moist/pink, Pharynx Normal Neck Exam: Positive: Supple; Negative: JVD, thyromegaly Chest Exam: Positive: Clear to auscultation, Normal air movement Heart Exam: Positive: Tachycardic, Regular Rhythm, Normal S1, Normal S2; Negative: Gallops, Murmurs, Rubs Abdomen Exam: Positive: Normal bowel sounds, Soft; Negative: Tenderness, Hepatospenomegaly Extremity Exam: Positive: Normal pulses; Negative: Clubbing, Cyanosis, Edema Skin Exam: Positive: Nl turgor and temperature; Negative: Rash, Breakdown Assessment /Plan Assessment This is a 34-year-old male with a past medical history significant for IV drug use with heroin and cocaine now on Suboxone, hepatitis C, neg HIV, He has been clean for the past five years and follows with a physician in [facility] for his buprenorphine. He presented to the emergency room with three weeks ago with generalized malaise, subjective fevers, decrease in appetite. Patient says he had an injury to his left wrist at work, treated at [place] with Superglue and healed without antibiotics. A week later, he was having subjective fevers. At [facility], he was found to have bilateral infiltrates on chest x-ray with complaints of shortness of breath, treated and admitted with ceftriaxone and azithromycin for pneumonia. Blood culture grew out methicillin- resistant Staphylococcus aureus (MRSA). CT chest showed no pulmonary embolism. Echocardiogram showed no vegetation. Patient became hypotensive status post IV fluid boluses, central line placement right internal jugular, and therefore patient was subsequently transferred to [facility] for further management. Nonoliguric HILDA creatinine at 2.13 at plateau with slight down trending today probably due to vancomycin and ibuprofen. vanco trough in range today .dose to be adjusted by pharmacy. continue to monitor creatinine. 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 Transesophageal echocardiogram ([facility]) on 06/11/2019 showed moderate tricuspid regurgitation secondary to vegetations in tricuspid valve. Vancomycin 1 gm every 24 hours. At present. once renal functions improve dose will have to be adjusted depending on troughs Needs ID near his Mother's house to follow up with as he will be staying with his mom till completion of treatment. Follow up has been set up with Dr Alves in [place]. End of treatment is jul 09 if antibiotics are given for 4 weeks. Bilateral septic emboli due to MRSA endocarditis. will need 4 to 6 weeks of vancomycin will follow up with ID at [place]. History of polysubstance abuse with prescription medications, oxycodone, Percocet, fentanyl, morphine, heroin and cocaine use. He admits he is still using marijuana recreationally for his chronic back pain. He is managed by a [facility] physician who does video conferencing once a month and gives him buprenorphine. Tobacco abuse. Cessation counseling has been provided. He is on nicotine replacement therapy. Positive urine drug screen for marijuana. Admits to continued use recreationally. History of bipolar disorder, on no medications. Splenomegaly. No complaints of left upper quadrant pain, flank pain or early satiety but at risk of traumatic injury and splenic rupture. Anemia. No acute indication for red blood cell (RBC) transfusion. Hyperkalemia, resolved secondary to potassium supplementation which has been discontinued. Hepatitis C needs to be addressed as outpatient. Plan/VTE VTE Prophylaxis Ordered?: Yes VS, I&O, 24H, Fishbone Vital Signs/I&O Vital Signs Date Time Temp Pulse Resp B/P (MAP) Pulse Ox O2 Delivery O2 Flow Rate FiO2 06/20/19 22:00 98.8 89 18 133/78 (96) 95 I&O- Last 24 Hours up to 6 AM 06/21/19 06:00 Intake Total 1720 ml Output Total 1500 ml Balance 220 ml Laboratory Data 24H LABS Laboratory Tests 2 06/20/19 06:33: Immature Granulocyte % (Auto) 0.4, White Blood Count 7.5, Red Blood Count 3.26L, Hemoglobin 9.9L, Hematocrit 28.6L, Mean Corpuscular Volume 87.7, Mean Corpuscular Hemoglobin 30.4, Mean Corpuscular Hemoglobin Concent 34.6, Red Cell Distribution Width 12.6, Platelet Count 432, Neutrophils (%) (Auto) 68.0H, Lymphocytes (%) (Auto) 20.7L, Monocytes (%) (Auto) 7.3H, Eosinophils (%) (Auto) 2.8, Basophils (%) (Auto) 0.8, Neutrophils # (Auto) 5.1, Lymphocytes # (Auto) 1.6, Monocytes # (Auto) 0.6, Eosinophils # (Auto) 0.2, Basophils # (Auto) 0.1, Nucleated Red Blood Cells % (auto) 0.0, Anion Gap 5L, Glomerular Filtration Rate 36.5L, Blood Urea Nitrogen 34H, Creatinine 2.22H, Sodium Level 134L, Potassium Level 4.4, Chloride Level 99, Carbon Dioxide Level 30, Calcium Level 8.4L 06/20/19 08:14: Vancomycin Level Trough 16.3 06/20/19 17:30: Anion Gap 7L, Glomerular Filtration Rate 38.3L, Blood Urea Nitrogen 31H, Creatinine 2.13H, Sodium Level 134L, Potassium Level 4.1, Chloride Level 98, Carbon Dioxide Level 29, Calcium Level 8.4L CBC/BMP Laboratory Tests 06/20/19 06:33 Red Blood Count 3.26 L, Mean Corpuscular Volume 87.7, Mean Corpuscular Hemoglobin 30.4, Mean Corpuscular Hemoglobin Concent 34.6, Red Cell Distribution Width 12.6, Neutrophils (%) (Auto) 68.0 H, Lymphocytes (%) (Auto) 20.7 L, Monocytes (%) (Auto) 7.3 H, Eosinophils (%) (Auto) 2.8, Basophils (%) (Auto) 0.8, Neutrophils # (Auto) 5.1, Lymphocytes # (Auto) 1.6, Monocytes # (Auto) 0.6, Eosinophils # (Auto) 0.2, Basophils # (Auto) 0.1, Calcium Level 8.4 L 06/20/19 17:30 Calcium Level 8.4 L Microbiology Microbiology 06/11/19 Blood Culture - Final, Complete NO GROWTH AFTER 5 DAYS 06/11/19 Blood Culture - Final, Complete NO GROWTH AFTER 5 DAYS 06/11/19 Gram Stain - Final, Complete 06/11/19 Sputum Culture - Final, Complete Staph.aureus Methicillin Resis Yeast Like Organism 06/11/19 Urine Culture - Final, Complete YOLA HDZ MD Jun 21, 2019 06:31
[2019-06-21] MEDS: PANTOPRAZOLE 40MG INJ (PROTONIX) (C9113) IV SCH (18:40)
[2019-06-21 22:00] VITALS: BP 121/73
[2019-06-22] MEDS: SODIUM CHLORIDE 0.9% INJ 10 ML SYR IV SCH ×2 (05:52→12:14)
[2019-06-22 06:00] VITALS: BP 107/72
[2019-06-22 06:15] LABS: BASO # 0.1 10^3/uL (0.0-0.2); EOS # 0.3 10^3/uL (0.0-0.50); EOS % 4.3 % (0.0-3.0); HEMOGLOBIN 9.1 g/dl (13.5-17.5); LYMPH # 1.7 10^3/uL (1.5-4.5); LYMPH % 23.8 % (24.0-44.0); MEAN CORPUSCULAR HEMOGLOBIN 28.7 pg (27.0-33.0); MEAN CORPUSCULAR HGB CONC 33.7 g/dl (32.0-36.5); MEAN CORPUSCULAR VOLUME 85.2 fl (80.0-96.0); MONO # 0.6 10^3/uL (0.0-0.8); MONO % 8.2 % (0.0-5.0); NEUTROPHILS # 4.3 10^3/uL (1.8-7.7); NEUTROPHILS % 62.3 % (36.0-66.0); PLATELET COUNT, AUTOMATED 459 10^3/uL (150-450); RED BLOOD COUNT 3.17 10^6/uL (4.30-6.10); WHITE BLOOD COUNT 6.9 10^3/uL (4.0-10.0)
[2019-06-22 06:53] LABS: CALCIUM LEVEL 8.2 MG/DL (8.5-10.1); CREATININE FOR GFR 2.01 MG/DL (0.70-1.30); GLOMERULAR FILTRATION RATE 40.9 (>60); POTASSIUM SERUM 4.5 MEQ/L (3.5-5.1)
[2019-06-22] MEDS ORDERED: PANT40TA3 PO ×2 (08:24→11:30)
[2019-06-22] MEDS ORDERED: ONDA4TAB6 PO ×2 (08:24→11:30)
[2019-06-22] MEDS ORDERED: TRAM50TA2 PO ×3 (08:24→11:30)
[2019-06-22] MEDS: ONDANSETRON 4 MG ORAL DISINTEGRATING TAB (Q0162 PER 1MG) PO SCH (08:53)
[2019-06-22] MEDS: VANCOMYCIN HCL 1,000 MG, VIAL MATE ADAPTER 1 EACH in D5W 250 ML IV SCH (08:53)
[2019-06-22] MEDS: BUPRENORPHINE 8 MG SL SCH (08:53)
[2019-06-22] MEDS: traMADol 50 MG TAB PO SCH (08:53)
[2019-06-22] MEDS: NICOTINE 14 MG/24 HR TRANSDERMAL TD SCH (08:54)
--- NOTE | 2019-06-22 22:41 | IPN ---
DATE: 06/20/2019 Nicolas is doing well this morning daily. He was not very hungry. He still has mild hemoptysis. He states he does not like to eat breakfast. He has right foot pain. He is using the walker because whenever he steps on his foot it hurts. LABORATORY DATA 06/20/2019: White count 7.5 hemoglobin 9.9, hematocrit 28.6, and platelets 432. Sodium 134, potassium 4.4. He will be restarted on vancomycin 1 gram IV every 24 hours. His last dose yesterday was at 10:00 a.m. PHYSICAL EXAMINATION: Temperature is 96.3, pulse is 70, respirations 18, blood pressure 117/72, oxygen saturation 93% on room air. Heart: Normal S1, S2 with systolic ejection murmur, 2/6 left lower sternal border, unchanged. LUNGS: Few expiratory wheezes bilaterally. ABDOMEN: Soft, nontender. No hepatosplenomegaly. EXTREMITIES: No redness. N0 edema. Slight tenderness at the base of the fourth toe. IMPRESSION: 1. Methicillin-resistant Staphylococcus aureus (MRSA) endocarditis with septic emboli to the lungs on IV vancomycin 1 gram every 24 hours. 2. Acute kidney injury with creatinine of 2.2, stable. We will continue vancomycin at 1 gram every 24 hours. Nonsteroidal antiinflammatory drugs (NSAIDs) have been stopped. 3. Chronic hepatitis C. Will need to be treated as an outpatient.. PLAN: Continue IV vancomycin until 07/09/2018, would be four weeks from negative cultures. The patient to follow with Dr. Itz Nichols in [place]. Once creatinine is stable or improving, the patient could be discharged home, hopefully on Sunday which will be much easier for his mother who is a certified medication technician (COMPUT[employer]) and will be taking care of him to bring him back to [place].
--- NOTE | 2019-06-24 06:44 | DS.PDOC ---
Discharge Summary General Date of Admission Jun 10, 2019 at 16:10 Date of Discharge 06/22/19 Discharge Summary PROCEDURES PERFORMED DURING STAY: [facility] on 06/11/19 PICC line DISCHARGE DIAGNOSES: Methicillin-resistant Staphylococcus aureus (MRSA) Tricuspid valve endocarditis. Bilateral septic emboli to lungs due to MRSA endocarditis. Nonoliguric HILDA possibly due to vancomycin and Ibuprofen History of polysubstance abuse now on Suboxone. Hepatitis C Splenomegaly Bipolar disorder not treated chronic anemia Tobacco dependence COMPLICATIONS/CHIEF COMPLAINT: MRSA Bacteremia. HISTORY OF PRESENT ILLNESS: see History and physical HOSPITAL COURSE: This is a 34-year-old male with a past medical history significant for IV drug use with heroin and cocaine now on Suboxone, hepatitis C, neg HIV, He has been clean for the past five years and follows with a physician in [facility] for his buprenorphine. He presented to the emergency room with three weeks ago with generalized malaise, subjective fevers, decrease in appetite. Patient says he had an injury to his left wrist at work, treated at [place] with Superglue and healed without antibiotics. A week later, he was having subjective fevers. At [facility], he was found to have bilateral infiltrates on chest x-ray with complaints of shortness of breath, treated and admitted with ceftriaxone and azithromycin for pneumonia. Blood culture grew out methicillin-resistant Staphylococcus aureus (MRSA). CT chest showed no pulmonary embolism. Echocardiogram showed no vegetation. Patient became hypotensive status post IV fluid boluses, central line placement right internal jugular, and therefore patient was subsequently transferred to [facility] for further management. Methicillin-resistant Staphylococcus aureus (MRSA) Tricuspid valve en docarditis. Transesophageal echocardiogram ([facility]) on 06/11/2019 showed moderate tricuspid regurgitation secondary to vegetations in tricuspid valve. Vancomycin 1 gm every 24 hours. At present. once renal functions improve dose will have to be adjusted depending on troughs Needs ID near his Mother's house to follow up with as he will be staying with his mom till completion of treatment. Follow up has been set up with Dr Alves in [place]. End of treatment is jul 09 if antibiotics are given for 4 weeks. Bilateral septic emboli due to MRSA endocarditis. will need 4 to 6 weeks of vancomycin will follow up with ID at [place]. Nonoliguric HILDA creatinine at 2.1 to 2.2 for 4 days at plateau with slight down trending to 2.01 today probably due to vancomycin and ibuprofen. vanco trough in range today .dose to be adjusted by pharmacy. continue to monitor creatinine. History of polysubstance abuse with prescription medications, oxycodone, Percocet, fentanyl, morphine, heroin and cocaine use. He admits he is still using marijuana recreationally for his chronic back pain. He is managed by a [facility] physician who does video conferencing once a month and gives him buprenorphine. Tobacco abuse. Cessation counseling has been provided. He is on nicotine replacement therapy. Positive urine drug screen for marijuana. Admits to continued use recreationally. History of bipolar disorder, on no medications. Splenomegaly. No complaints of left upper quadrant pain, flank pain or early satiety but at risk of traumatic injury and splenic rupture. Anemia. No acute indication for red blood cell (RBC) transfusion. Hyperkalemia, resolved secondary to potassium supplementation which has been discontinued. Hepatitis C needs to be addressed as outpatient. DISCHARGE MEDICATIONS: Please see below. ALLERGIES: Please see below. PHYSICAL EXAMINATION ON DISCHARGE: VITAL SIGNS: Please see below. General Exam: Positive: Alert, Cooperative, No Acute Distress Eye Exam: Positive: PERRLA, Conjunctiva & lids normal, EOMI; Negative: Sclera icteric ENT Exam: Positive: Atraumatic, Mucous membr. moist/pink, Pharynx Normal Neck Exam: Positive: Supple; Negative: JVD, thyromegaly Chest Exam: Positive: Clear to auscultation, Normal air movement Heart Exam: Positive: Tachycardic, Regular Rhythm, Normal S1, Normal S2; Negative: Gallops, Murmurs, Rubs Abdomen Exam: Positive: Normal bowel sounds, Soft; Negative: Tenderness, Hepatospenomegaly Extremity Exam: Positive: Normal pulses; Negative: Clubbing, Cyanosis, Edema Skin Exam: Positive: Nl turgor and temperature; Negative: Rash, Breakdown LABORATORY DATA: Please see below. ACTIVITY: [As tolerated]. DIET: As tolerated DISPOSITION: Home Health Service. DISCHARGE INSTRUCTIONS: Follow up with ID in [place] ITEMS TO FOLLOWUP ON ON OUTPATIENT: Basic metabolic profile in 3 days DISCHARGE CONDITION: [Stable]. TIME SPENT ON DISCHARGE: 35 minutes. Vital Signs/I&Os Vital Signs Date Time Temp Pulse Resp B/P (MAP) Pulse Ox O2 Delivery O2 Flow Rate FiO2 06/22/19 08:53 18 06/22/19 06:00 98.1 82 107/72 (84) 94 Laboratory Data CBC/BMP Item Value Date Time White Blood Count 6.9 10^3/uL 06/22/19 0555 Red Blood Count 3.17 10^6/uL L 06/22/19 0555 Hemoglobin 9.1 g/dl L 06/22/19 0555 Hematocrit 27.0 % L 06/22/19 05 Mean Corpuscular Volume 85.2 fl 06/22/19 05 Mean Corpuscular Hemoglobin 28.7 pg 06/22/19 0555 Mean Corpuscular Hemoglobin Concent 33.7 g/dl 06/22/19 0555 Red Cell Distribution Width 12.3 % 06/22/19 05 Platelet Count 459 10^3/uL H 06/22/19 0555 Immature Granulocyte % (Auto) 0.4 % 06/22/19 0555 Neutrophils (%) (Auto) 62.3 % 06/22/19 0555 Lymphocytes (%) (Auto) 23.8 % L 06/22/19 0555 Monocytes (%) (Auto) 8.2 % H 06/22/19 0555 Eosinophils (%) (Auto) 4.3 % H 06/22/19 0555 Basophils (%) (Auto) 1.0 % 06/22/19 0555 Neutrophils # (Auto) 4.3 10^3/uL 06/22/19 0555 Lymphocytes # (Auto) 1.7 10^3/uL 06/22/19 0555 Monocytes # (Auto) 0.6 10^3/uL 06/22/19 0555 Eosinophils # (Auto) 0.3 10^3/uL 06/22/19 0555 Basophils # (Auto) 0.1 10^3/uL 06/22/19 0555 Nucleated Red Blood Cells % (auto) 0.0 % 06/22/19 05 Sodium Level 137 MEQ/L 06/22/19 0555 Potassium Level 4.5 MEQ/L 06/22/19 0555 Chloride Level 101 MEQ/L 06/22/19 0555 Carbon Dioxide Level 29 MEQ/L 06/22/19 0555 Anion Gap 7 MEQ/L L 06/22/19 0555 Blood Urea Nitrogen 30 MG/DL H 06/22/19 0555 Creatinine 2.01 MG/DL H 06/22/19 0555 Glomerular Filtration Rate 40.9 L 06/22/19 0555 Fasting Glucose 102 MG/DL H 06/22/19 0555 Calcium Level 8.2 MG/DL L 06/22/19 0555 Discharge Medications Scheduled Buprenorphine HCl (Buprenorphine HCl) 8 Mg Tab.subl, 8 MG SL TID, (Reported) Ondansetron (Ondansetron Odt) 4 Mg Tab.rapdis, 4 MG PO BID Pantoprazole Sodium (Pantoprazole Sodium) 40 Mg Tablet.dr, 40 MG PO DAILY Scheduled PRN Tramadol HCl (Tramadol HCl) 50 Mg Tablet, 50 MG PO TIDP PRN for pain Allergies Coded Allergies: No Known Allergies (Verified Allergy, Unknown, 06/10/19) YOLA HDZ MD Jun 24, 2019 06:44
== END 2019-06-22 12:25 | disposition home health service (06) | DRG 193 ==
LOC: M PCU 16:10 → EEVIPCON 16:10 → M MS5PR 06-12 12:54
PROVIDERS: ADMIT General Practice; ATTEND Internal Medicine Nephrology
PROC: B246ZZ4 Ultrasonography of Right and Left Heart, Transesophageal (ICD-10-PCS; principal; 2019-06-11 08:14)
PROC: 02HV33Z Insertion of Infusion Device into Superior Vena Cava, Percutaneous Approach (ICD-10-PCS; 2019-06-18)
DX: I33.0 Acute and subacute infective endocarditis (principal); I26.90 Septic pulmonary embolism without acute cor pulmonale; N17.9 Acute kidney failure, unspecified; R78.81 Bacteremia; D69.6 Thrombocytopenia, unspecified; M51.24 Other intervertebral disc displacement, thoracic region; R16.1 Splenomegaly, not elsewhere classified; E87.5 Hyperkalemia; B95.62 Methicillin resistant Staphylococcus aureus infection as the cause of diseases classified elsewhere; T36.8X5A Adverse effect of other systemic antibiotics, initial encounter; F17.210 Nicotine dependence, cigarettes, uncomplicated; Z79.899 Other long term (current) drug therapy; B18.2 Chronic viral hepatitis C; T39.315A Adverse effect of propionic acid derivatives, initial encounter; R09.02 Hypoxemia

== ENCOUNTER → 2022-01-03 | Outpatient (CLI) | payer MEDICAID, OTHER ==
[~2022-01-03] MED LIST: BUPR8SUB SL; ONDA4TAB6 PO; PANT40TA29 PO; TRAM50TA2 PO
== END ==
LOC: M LAB 12:24
DX: F11.90 Opioid use, unspecified, uncomplicated (principal)